=== PATIENT | female | born 1990 | race African-American/Black ===

== ENCOUNTER 2018-12-28 15:23 | Inpatient (IN) | payer MEDICARE ==
[~2018-12-28] VITALS: Ht 162.6 cm; Wt 112.5 kg
[2018-12-28] MEDS ORDERED: HALOPERIDOL 5 MG TABLET PO PRN (20:00)
[2018-12-28] MEDS ORDERED: LORazepam 2 MG TABLET PO PRN (20:00)
[2018-12-28] MEDS ORDERED: ZOLPIDEM TARTRATE 10 MG TABLET PO PRN (20:00)
[2018-12-28 21:02] VITALS: BP 129/77
[2018-12-28] MEDS ORDERED: ALBUTEROL SULFATE HFA 90 MCG/PUFF 8 GM INHALER IH PRN (21:15)
[2018-12-28] MEDS ORDERED: CloNIDine HCL 0.1 MG TABLET PO PRN (21:15)
[2018-12-28] MEDS ORDERED: DOCUSATE SODIUM 100 MG CAPSULE PO PRN (21:15)
[2018-12-28] MEDS ORDERED: NICOTINE 14 MG/24 HOUR PATCH TD PRN (21:15)
[2018-12-28] MEDS ORDERED: MAG HYDROX/AL HYDROX/SIMETH ES 30 ML SUSPENSION UDCUP PO PRN (21:15)
[2018-12-28] MEDS ORDERED: PETROLATUM,WHITE 28 GM JELLY TP PRN (21:15)
[2018-12-28] MEDS ORDERED: GuaiFENesin/D-METHORPHAN [SUGAR-FREE] 200-20MG/10 ML SYRUP UDCUP PO PRN (21:15)
[2018-12-28] MEDS ORDERED: MAGNESIUM HYDROXIDE SUSPENSION 30 ML UDCUP PO PRN (21:15)
[2018-12-28] MEDS ORDERED: LOPERAMIDE HCL 2 MG CAPSULE PO PRN (21:15)
[2018-12-28] MEDS ORDERED: IBUPROFEN 400 MG TABLET PO PRN (21:15)
[2018-12-29 02:33] VITALS: BP 126/78
[2018-12-29 08:35] VITALS: BP 121/68
[2018-12-29 08:49] LABS: BASOPHILS % (AUTO) 0.6 % (0.0-2.0); EOSINOPHILS % (AUTO) 1.8 % (1.0-6.0); HEMATOCRIT 36.3 % (36-46); LYMPHOCYTES # (AUTO) 1.4 K/uL (1.0-4.8); LYMPHOCYTES % (AUTO) 27.3 % (22.0-44.0); MEAN CORPUSCULAR HEMOGLOBIN 27.9 pg (26.0-34.0); MEAN CORPUSCULAR HGB CONC 33.1 G/dL (31.0-37.0); MEAN CORPUSCULAR VOLUME 84 fL (80-100); MONOCYTES # (AUTO) 0.5 K/uL (0.1-1.0); MONOCYTES % (AUTO) 9.9 % (2.0-9.0); NEUTROPHILS # (AUTO) 3.2 K/uL (1.8-7.7); NEUTROPHILS % (AUTO) 60.4 % (40.0-70.0); PLATELET COUNT (AUTO) 255 K/uL (150-450); RED BLOOD CELL COUNT(AUTO) 4.31 MIL/uL (4.00-5.20); RED CELL DISTRIBUTION WIDTH 15.4 % (11.5-14.5)
[2018-12-29 08:55] LABS: HEMOGLOBIN A1C 5.7 % (4.5-6.2)
[2018-12-29 09:22] LABS: ALANINE AMINOTRANSFERASE 19 U/L (12-78); ALBUMIN 2.8 g/dL (3.4-5.0); ALKALINE PHOSPHATASE 39 U/L (46-116); ANION GAP 9 mmol/L (8-16); ASPARTATE AMINOTRANSFERASE 18 U/L (15-37); BILIRUBIN,TOTAL 0.2 mg/dL (0.1-1.0); CARBON DIOXIDE 23 mmol/L (22-29); CHLORIDE 103 mmol/L (98-107); CHOL/HDL RATIO 2.8 (3.9-5.7); CHOLESTEROL 141 mg/dL (131-200); CREATININE 0.49 mg/dL (0.60-1.30); FREE T4 (FREE THYROXINE) 0.91 ng/dL (0.76-1.46); GLOMERULAR FILTR. RATE CALC > 60 mL/min (>60); GLUCOSE,RANDOM 81 mg/dL (70-110); HCG,QUANTITATIVE 35370 mIU/mL (0-6); HDL CHOLESTEROL 51 mg/dL (40-60); LDL CHOL (CALC.) 80 mg/dL (0-130); SODIUM SERUM 135 mmol/L (136-145); THYROID STIMULATING HORMONE 0.31 uIU/mL (0.36-3.74); TOTAL PROTEIN, SERUM 6.2 g/dL (6.4-8.2); TRIGLYCERIDES 52 mg/dL (15-150); UREA NITROGEN, BLOOD 13 mg/dL (7-18)
[2018-12-29] MEDS ORDERED: DiphenhydrAMINE HCL 25 MG CAPSULE PO PRN (10:30)
[2018-12-29 16:05] VITALS: BP 118/67
[2018-12-29] MEDS: ONDANSETRON HCL 4 MG TABLET PO PRN (17:17)
[2018-12-30 06:41] VITALS: BP 120/71
[2018-12-30 08:15] VITALS: BP 137/73
[2018-12-30] MEDS: ONDANSETRON HCL 4 MG TABLET PO PRN (10:37)
[2018-12-30 16:11] VITALS: BP 103/60
[2018-12-30] MEDS: ACETAMINOPHEN 325 MG TABLET PO PRN (23:51)
[2018-12-31 00:02] VITALS: BP 112/72
[2018-12-31] MEDS: ONDANSETRON HCL 4 MG TABLET PO PRN (07:13)
[2018-12-31 08:17] VITALS: BP 110/60
[2018-12-31] MEDS: PRENATAL VIT#96/FERROUS FUM/FA TABLET PO SCH (09:34)
[2018-12-31 16:10] VITALS: BP 99/74
[2019-01-01 00:53] VITALS: BP 116/78
[2019-01-01] MEDS: ACETAMINOPHEN 325 MG TABLET PO PRN (04:51)
[2019-01-01 08:12] VITALS: BP 100/56
[2019-01-01] MEDS: PRENATAL VIT#96/FERROUS FUM/FA TABLET PO SCH (08:22)
[2019-01-01] MEDS ORDERED: OLAN5TAB2 PO (11:38)
[2019-01-01] MEDS ORDERED: PREN-154 PO (11:40)
[2019-01-01] MEDS ORDERED: OLANZapine 5 MG TABLET PO SCH (21:00)
== END 2019-01-01 14:55 | disposition home or self-care (01) | DRG 832 ==
LOC: B3A 19:53
DX: O99.341 Other mental disorders complicating pregnancy, first trimester (principal); E87.1 Hypo-osmolality and hyponatremia; O99.321 Drug use complicating pregnancy, first trimester; F25.0 Schizoaffective disorder, bipolar type; F12.10 Cannabis abuse, uncomplicated; F10.10 Alcohol abuse, uncomplicated; O99.281 Endocrine, nutritional and metabolic diseases complicating pregnancy, first trimester; O26.891 Other specified pregnancy related conditions, first trimester; O99.311 Alcohol use complicating pregnancy, first trimester; E88.09 Other disorders of plasma-protein metabolism, not elsewhere classified; E66.3 Overweight; Z71.51 Drug abuse counseling and surveillance of drug abuser; Z71.41 Alcohol abuse counseling and surveillance of alcoholic; Z91.038 Other insect allergy status; Z3A.13 13 weeks gestation of pregnancy
CPT/HCPCS: 76811; 83036; 84439; 84443; 87081; Q0162

== ENCOUNTER 2019-01-31 13:55 | Inpatient (IN) | payer MEDICARE, OTHER ==
[~2019-01-31] VITALS: Ht 162.6 cm; Wt 118.6 kg
[~2019-01-31 13:55] MED LIST: OLAN5TAB2 PO; PREN-154 PO
[2019-01-31 16:03] LABS: APPEARANCE,URINE CLEAR (CLEAR); BILIRUBIN,URINE NEGATIVE (NEGATIVE); GLUCOSE, URINE (UA) NEGATIVE (NEGATIVE); KETONES,URINE TRACE mg/dL (NEGATIVE); LEUKOCYTE ESTERASE ,URINE NEGATIVE (NEGATIVE); NITRATE,URINE NEGATIVE (NEGATIVE); OCCULT BLOOD,URINE NEGATIVE (NEGATIVE); PH,URINE 6.5 (5.0-8.0); PROTEIN,URINE NEGATIVE (NEGATIVE); UROBILINOGEN,URINE 0.2 mg/dL (<=1.0)
[2019-01-31 16:12] LABS: BACTERIA,URINE Few /HPF (None Seen); RBC,URINE 0-2 /HPF (0-2); SQUAMOUS EPITHELIAL CELL,UR Moderate /LPF (None Seen); WBC,URINE 0-2 /HPF (0-5)
[2019-01-31 16:15] LABS: AMPHET/METH SCREEN,URINE NEGATIVE (NEGATIVE); BARBITURATE SCREEN, URINE NEGATIVE (NEGATIVE); BENZODIAZEPINES SCREEN,URINE NEGATIVE (NEGATIVE); CANNABINOID SCREEN,URINE NEGATIVE (NEGATIVE); COCAINE SCREEN,URINE NEGATIVE (NEGATIVE); METHADONE SCREEN, URINE NEGATIVE (NEGATIVE); OPIATE SCREEN,URINE NEGATIVE (NEGATIVE)
[2019-01-31 16:18] LABS: PHENCYCLIDINE SCREEN,URINE NEGATIVE (NEGATIVE)
[2019-01-31] MEDS ORDERED: DiphenhydrAMINE HCL 25 MG CAPSULE PO PRN (17:00)
[2019-01-31] MEDS ORDERED: IBUPROFEN 400 MG TABLET PO PRN (17:15)
[2019-01-31 19:27] VITALS: BP 117/71
[2019-02-01] MEDS: PRENATAL VIT#96/FERROUS FUM/FA TABLET PO SCH (08:27)
[2019-02-01 09:52] VITALS: BP 124/89
[2019-02-01] MEDS ORDERED: MAG HYDROX/AL HYDROX/SIMETH ES 30 ML SUSPENSION UDCUP PO PRN (10:30)
[2019-02-01] MEDS ORDERED: MAGNESIUM HYDROXIDE SUSPENSION 30 ML UDCUP PO PRN (10:30)
[2019-02-01] MEDS ORDERED: GuaiFENesin/D-METHORPHAN [SUGAR-FREE] 200-20MG/10 ML SYRUP UDCUP PO PRN (10:30)
[2019-02-01] MEDS ORDERED: PETROLATUM,WHITE 28 GM JELLY TP PRN (10:30)
[2019-02-01] MEDS ORDERED: DOCUSATE SODIUM 100 MG CAPSULE PO PRN (10:30)
[2019-02-01] MEDS ORDERED: ONDANSETRON HCL 4 MG TABLET PO PRN (10:30)
[2019-02-01 10:39] LABS: BASOPHILS % (AUTO) 0.4 % (0.0-2.0); EOSINOPHILS % (AUTO) 2.2 % (1.0-6.0); HEMATOCRIT 35.8 % (36-46); LYMPHOCYTES # (AUTO) 1.7 K/uL (1.0-4.8); LYMPHOCYTES % (AUTO) 25.4 % (22.0-44.0); MEAN CORPUSCULAR HEMOGLOBIN 28.6 pg (26.0-34.0); MEAN CORPUSCULAR HGB CONC 33.6 G/dL (31.0-37.0); MEAN CORPUSCULAR VOLUME 85 fL (80-100); MONOCYTES # (AUTO) 0.7 K/uL (0.1-1.0); NEUTROPHILS # (AUTO) 4.1 K/uL (1.8-7.7); PLATELET COUNT (AUTO) 222 K/uL (150-450); RED BLOOD CELL COUNT(AUTO) 4.21 MIL/uL (4.00-5.20); RED CELL DISTRIBUTION WIDTH 15.3 % (11.5-14.5)
[2019-02-01 10:48] LABS: HEMOGLOBIN A1C 5.4 % (4.5-6.2)
[2019-02-01 10:59] LABS: ALANINE AMINOTRANSFERASE 22 U/L (12-78); ALBUMIN 2.9 g/dL (3.4-5.0); ALKALINE PHOSPHATASE 48 U/L (46-116); ANION GAP 6 mmol/L (8-16); ASPARTATE AMINOTRANSFERASE 17 U/L (15-37); BILIRUBIN,TOTAL 0.1 mg/dL (0.1-1.0); CARBON DIOXIDE 27 mmol/L (22-29); CHLORIDE 104 mmol/L (98-107); CHOL/HDL RATIO 2.9 (3.9-5.7); CHOLESTEROL 164 mg/dL (131-200); CREATININE 0.63 mg/dL (0.60-1.30); GLOMERULAR FILTR. RATE CALC > 60 mL/min (>60); GLUCOSE,RANDOM 83 mg/dL (70-110); HDL CHOLESTEROL 56 mg/dL (40-60); LDL CHOL (CALC.) 91 mg/dL (0-130); POTASSIUM 4.2 mmol/L (3.5-5.1); SODIUM SERUM 137 mmol/L (136-145); THYROID STIMULATING HORMONE 1.09 uIU/mL (0.36-3.74); TOTAL PROTEIN, SERUM 6.3 g/dL (6.4-8.2); TRIGLYCERIDES 85 mg/dL (15-150); UREA NITROGEN, BLOOD 8 mg/dL (7-18)
[2019-02-01 20:16] VITALS: BP 128/68
[2019-02-01] MEDS: OLANZapine 5 MG TABLET PO SCH (20:22)
[2019-02-02 08:40] VITALS: BP 109/79
[2019-02-02] MEDS: PRENATAL VIT#96/FERROUS FUM/FA TABLET PO SCH (08:43)
[2019-02-02] MEDS: DiphenhydrAMINE HCL 25 MG CAPSULE PO PRN (12:41)
[2019-02-02] MEDS: OLANZapine 5 MG TABLET PO SCH (21:21)
[2019-02-02 22:39] VITALS: BP 112/82
[2019-02-03] MEDS: ALBUTEROL SULFATE HFA 90 MCG/PUFF 8 GM INHALER IH PRN (06:27)
[2019-02-03] MEDS: PRENATAL VIT#96/FERROUS FUM/FA TABLET PO SCH (08:29)
[2019-02-03 08:46] VITALS: BP 122/74
[2019-02-03 19:04] VITALS: BP 145/68
[2019-02-03 20:17] VITALS: BP 138/74
[2019-02-03] MEDS: OLANZapine 5 MG TABLET PO SCH (20:18)
[2019-02-03] MEDS: ACETAMINOPHEN 325 MG TABLET PO PRN (20:18)
[2019-02-03] MEDS: DiphenhydrAMINE HCL 25 MG CAPSULE PO PRN (20:18)
[2019-02-04 08:30] VITALS: BP 124/86
[2019-02-04] MEDS: PRENATAL VIT#96/FERROUS FUM/FA TABLET PO SCH (08:54)
[2019-02-04] MEDS: ALBUTEROL SULFATE HFA 90 MCG/PUFF 8 GM INHALER IH PRN (14:42)
[2019-02-04] MEDS: DiphenhydrAMINE HCL 25 MG CAPSULE PO PRN ×2 (18:11→22:15)
[2019-02-04] MEDS: OLANZapine 5 MG TABLET PO SCH (20:03)
[2019-02-04 22:15] VITALS: BP 128/76
[2019-02-04] MEDS: ACETAMINOPHEN 325 MG TABLET PO PRN (22:15)
[2019-02-05] MEDS: DiphenhydrAMINE HCL 25 MG CAPSULE PO PRN (07:40)
[2019-02-05] MEDS: PRENATAL VIT#96/FERROUS FUM/FA TABLET PO SCH (09:10)
[2019-02-05] MEDS: ALBUTEROL SULFATE HFA 90 MCG/PUFF 8 GM INHALER IH PRN (09:11)
[2019-02-05 09:45] VITALS: BP 145/89
[2019-02-05] MEDS: OLANZapine 5 MG TABLET PO SCH ×2 (10:35→21:07)
[2019-02-05 17:48] VITALS: BP 148/95
[2019-02-06 01:32] VITALS: BP 125/87
[2019-02-06] MEDS: DiphenhydrAMINE HCL 25 MG CAPSULE PO PRN ×2 (06:30→20:23)
[2019-02-06] MEDS: PRENATAL VIT#96/FERROUS FUM/FA TABLET PO SCH (09:00)
[2019-02-06] MEDS: OLANZapine 5 MG TABLET PO SCH ×4 (09:00→21:32)
[2019-02-07 08:00] VITALS: BP 92/54
[2019-02-07] MEDS: PRENATAL VIT#96/FERROUS FUM/FA TABLET PO SCH (08:05)
[2019-02-07] MEDS: OLANZapine 5 MG TABLET PO SCH ×2 (08:06→20:25)
[2019-02-07] MEDS: DiphenhydrAMINE HCL 25 MG CAPSULE PO PRN (20:25)
[2019-02-08] MEDS: PRENATAL VIT#96/FERROUS FUM/FA TABLET PO SCH (08:16)
[2019-02-08] MEDS: OLANZapine 5 MG TABLET PO SCH ×2 (08:16→20:40)
[2019-02-08 19:49] VITALS: BP 125/69
[2019-02-09] MEDS: PRENATAL VIT#96/FERROUS FUM/FA TABLET PO SCH (08:17)
[2019-02-09] MEDS: OLANZapine 5 MG TABLET PO SCH ×2 (08:18→20:02)
[2019-02-09 17:08] VITALS: BP 123/89
[2019-02-10 08:00] VITALS: BP 116/75
[2019-02-10] MEDS: PRENATAL VIT#96/FERROUS FUM/FA TABLET PO SCH (08:32)
[2019-02-10] MEDS: OLANZapine 5 MG TABLET PO SCH ×2 (08:32→20:12)
[2019-02-11 00:21] VITALS: BP 135/81
[2019-02-11] MEDS: PRENATAL VIT#96/FERROUS FUM/FA TABLET PO SCH (08:41)
[2019-02-11] MEDS: OLANZapine 5 MG TABLET PO SCH ×2 (08:41→20:44)
[2019-02-12 00:12] VITALS: BP 126/57
[2019-02-12] MEDS: OLANZapine 5 MG TABLET PO SCH ×2 (08:22→20:01)
[2019-02-12] MEDS: PRENATAL VIT#96/FERROUS FUM/FA TABLET PO SCH (08:22)
[2019-02-12 09:21] VITALS: BP 110/79
[2019-02-13] MEDS: PRENATAL VIT#96/FERROUS FUM/FA TABLET PO SCH (08:30)
[2019-02-13] MEDS: OLANZapine 5 MG TABLET PO SCH ×2 (08:30→20:08)
[2019-02-13 22:58] VITALS: BP 119/82
[2019-02-14 08:00] VITALS: BP 145/89
[2019-02-14] MEDS: OLANZapine 5 MG TABLET PO SCH ×2 (09:15→22:14)
[2019-02-14] MEDS: PRENATAL VIT#96/FERROUS FUM/FA TABLET PO SCH (09:15)
[2019-02-14 18:40] VITALS: BP 139/73
[2019-02-15 08:01] VITALS: BP 121/91
[2019-02-15] MEDS: OLANZapine 5 MG TABLET PO SCH ×2 (08:03→20:16)
[2019-02-15] MEDS: PRENATAL VIT#96/FERROUS FUM/FA TABLET PO SCH (08:03)
[2019-02-15 17:04] VITALS: BP 112/73
[2019-02-16] MEDS: OLANZapine 5 MG TABLET PO SCH ×2 (07:58→20:01)
[2019-02-16] MEDS: PRENATAL VIT#96/FERROUS FUM/FA TABLET PO SCH (07:58)
[2019-02-16 09:20] VITALS: BP 125/81
[2019-02-16 16:52] VITALS: BP 114/75
[2019-02-17] MEDS: PRENATAL VIT#96/FERROUS FUM/FA TABLET PO SCH (09:25)
[2019-02-17] MEDS: OLANZapine 5 MG TABLET PO SCH ×2 (09:25→20:13)
[2019-02-17 10:37] VITALS: BP 136/85
[2019-02-17 16:37] VITALS: BP 128/78
[2019-02-18] MEDS: PRENATAL VIT#96/FERROUS FUM/FA TABLET PO SCH (07:24)
[2019-02-18] MEDS: OLANZapine 5 MG TABLET PO SCH ×2 (07:24→20:04)
[2019-02-18 09:15] VITALS: BP 126/72
[2019-02-18 16:29] VITALS: BP 124/84
[2019-02-19 08:00] VITALS: BP 116/74
[2019-02-19] MEDS: PRENATAL VIT#96/FERROUS FUM/FA TABLET PO SCH (08:53)
[2019-02-19] MEDS: OLANZapine 5 MG TABLET PO SCH ×2 (08:54→20:29)
[2019-02-20 08:00] VITALS: BP 113/77
[2019-02-20] MEDS: PRENATAL VIT#96/FERROUS FUM/FA TABLET PO SCH (08:14)
[2019-02-20] MEDS: OLANZapine 5 MG TABLET PO SCH ×2 (08:14→20:40)
[2019-02-20 17:31] VITALS: BP 133/78
[2019-02-21 08:30] VITALS: BP 109/66
[2019-02-21] MEDS: PRENATAL VIT#96/FERROUS FUM/FA TABLET PO SCH (08:42)
[2019-02-21] MEDS: OLANZapine 5 MG TABLET PO SCH ×2 (08:42→21:24)
[2019-02-21] MEDS ORDERED: TUBERCULIN, PURIFIED PROTEIN DERIVATIVE 5 TU/0.1 ML SYRINGE ID ONE (09:00)
[2019-02-21 16:45] VITALS: BP 145/71
[2019-02-22 08:00] VITALS: BP 109/73
[2019-02-22] MEDS: OLANZapine 5 MG TABLET PO SCH ×2 (09:12→21:00)
[2019-02-22] MEDS: PRENATAL VIT#96/FERROUS FUM/FA TABLET PO SCH (09:12)
[2019-02-22 16:00] VITALS: BP 142/90
[2019-02-22] MEDS ORDERED: TUBERCULIN, PURIFIED PROTEIN DERIVATIVE 5 TU/0.1 ML SYRINGE ID ONE (16:00)
[2019-02-23 08:00] VITALS: BP 116/78
[2019-02-23] MEDS: OLANZapine 5 MG TABLET PO SCH ×2 (08:03→20:40)
[2019-02-23] MEDS: PRENATAL VIT#96/FERROUS FUM/FA TABLET PO SCH (08:03)
[2019-02-23 23:20] VITALS: BP 124/81
[2019-02-24 08:00] VITALS: BP 111/73
[2019-02-24] MEDS: PRENATAL VIT#96/FERROUS FUM/FA TABLET PO SCH (08:54)
[2019-02-24] MEDS: OLANZapine 5 MG TABLET PO SCH ×2 (08:54→20:20)
[2019-02-24 16:10] VITALS: BP 109/62
[2019-02-25] MEDS: OLANZapine 5 MG TABLET PO SCH ×2 (08:22→20:38)
[2019-02-25] MEDS: PRENATAL VIT#96/FERROUS FUM/FA TABLET PO SCH (08:22)
[2019-02-25 09:17] VITALS: BP 113/60
[2019-02-25 17:07] VITALS: BP 122/70
[2019-02-26] MEDS: PRENATAL VIT#96/FERROUS FUM/FA TABLET PO SCH (08:23)
[2019-02-26] MEDS: OLANZapine 5 MG TABLET PO SCH ×2 (08:23→20:25)
[2019-02-26 09:35] VITALS: BP 116/73
[2019-02-26 16:20] VITALS: BP 118/70
[2019-02-27 08:00] VITALS: BP 119/74
[2019-02-27] MEDS: PRENATAL VIT#96/FERROUS FUM/FA TABLET PO SCH (09:38)
[2019-02-27] MEDS: OLANZapine 5 MG TABLET PO SCH ×2 (09:38→21:29)
[2019-02-27 16:42] VITALS: BP 115/72
[2019-02-28 08:00] VITALS: BP 135/68
[2019-02-28] MEDS: PRENATAL VIT#96/FERROUS FUM/FA TABLET PO SCH (08:59)
[2019-02-28] MEDS: OLANZapine 5 MG TABLET PO SCH ×2 (08:59→20:17)
[2019-02-28 20:46] VITALS: BP 132/75
[2019-03-01 08:00] VITALS: BP 143/72
[2019-03-01] MEDS: PRENATAL VIT#96/FERROUS FUM/FA TABLET PO SCH (09:20)
[2019-03-01] MEDS: OLANZapine 5 MG TABLET PO SCH ×2 (09:20→20:44)
[2019-03-01 16:30] VITALS: BP 121/62
[2019-03-02 08:45] VITALS: BP 105/73
[2019-03-02] MEDS: OLANZapine 5 MG TABLET PO SCH ×2 (09:08→20:08)
[2019-03-02] MEDS: PRENATAL VIT#96/FERROUS FUM/FA TABLET PO SCH (09:08)
[2019-03-03] MEDS: PRENATAL VIT#96/FERROUS FUM/FA TABLET PO SCH (08:41)
[2019-03-03] MEDS: OLANZapine 5 MG TABLET PO SCH ×2 (08:41→20:22)
[2019-03-03 09:49] VITALS: BP 106/66
[2019-03-03 22:04] VITALS: BP 109/72
[2019-03-04] MEDS: OLANZapine 5 MG TABLET PO SCH ×2 (08:05→20:07)
[2019-03-04] MEDS: PRENATAL VIT#96/FERROUS FUM/FA TABLET PO SCH (08:05)
[2019-03-04 08:32] VITALS: BP 105/67
[2019-03-04 20:45] VITALS: BP 133/89
[2019-03-04 20:49] VITALS: BP 124/80
[2019-03-05 08:00] VITALS: BP 113/80
[2019-03-05] MEDS: PRENATAL VIT#96/FERROUS FUM/FA TABLET PO SCH (08:36)
[2019-03-05] MEDS: OLANZapine 5 MG TABLET PO SCH ×2 (08:36→20:31)
[2019-03-06] MEDS: PRENATAL VIT#96/FERROUS FUM/FA TABLET PO SCH (09:04)
[2019-03-06] MEDS: OLANZapine 5 MG TABLET PO SCH ×2 (09:04→20:15)
[2019-03-06 09:15] VITALS: BP 129/73
[2019-03-06] MEDS: MAGNESIUM SULFATE 454 GM BOX TP SCH (16:36)
[2019-03-07 08:15] VITALS: BP 124/84
[2019-03-07] MEDS: PRENATAL VIT#96/FERROUS FUM/FA TABLET PO SCH (08:26)
[2019-03-07] MEDS: OLANZapine 5 MG TABLET PO SCH (08:26)
[2019-03-07 10:29] VITALS: BP 124/84
[2019-03-07] MEDS: MAGNESIUM SULFATE 454 GM BOX TP SCH (11:28)
[2019-03-07 16:00] VITALS: BP 126/79
[2019-03-07] MEDS: CARBAMIDE PEROXIDE 6.5% 15 ML OTIC SOLUTION AU SCH (16:22)
[2019-03-07] MEDS: OLANZapine 5 MG RAPDIS TABLET PO SCH (20:15)
[2019-03-08 02:56] VITALS: BP 121/61
[2019-03-08] MEDS: PRENATAL VIT#96/FERROUS FUM/FA TABLET PO SCH (09:00)
[2019-03-08] MEDS: OLANZapine 5 MG RAPDIS TABLET PO SCH ×2 (09:00→20:20)
[2019-03-08] MEDS: CARBAMIDE PEROXIDE 6.5% 15 ML OTIC SOLUTION AU SCH ×2 (09:01→16:04)
[2019-03-08] MEDS: MAGNESIUM SULFATE 454 GM BOX TP SCH (09:01)
[2019-03-08 16:51] VITALS: BP 126/75
[2019-03-09] MEDS: CARBAMIDE PEROXIDE 6.5% 15 ML OTIC SOLUTION AU SCH ×2 (09:10→16:09)
[2019-03-09] MEDS: OLANZapine 5 MG RAPDIS TABLET PO SCH ×2 (09:10→20:10)
[2019-03-09] MEDS: MAGNESIUM SULFATE 454 GM BOX TP SCH (09:10)
[2019-03-09] MEDS: PRENATAL VIT#96/FERROUS FUM/FA TABLET PO SCH (09:10)
[2019-03-10] MEDS: PRENATAL VIT#96/FERROUS FUM/FA TABLET PO SCH (10:40)
[2019-03-10] MEDS: OLANZapine 5 MG RAPDIS TABLET PO SCH ×2 (10:40→21:00)
[2019-03-10] MEDS: MAGNESIUM SULFATE 454 GM BOX TP SCH (10:40)
[2019-03-10] MEDS: CARBAMIDE PEROXIDE 6.5% 15 ML OTIC SOLUTION AU SCH ×2 (10:40→16:15)
[2019-03-10 20:03] VITALS: BP 144/91
[2019-03-11 08:00] VITALS: BP 110/60
[2019-03-11] MEDS: PRENATAL VIT#96/FERROUS FUM/FA TABLET PO SCH (08:26)
[2019-03-11] MEDS: CARBAMIDE PEROXIDE 6.5% 15 ML OTIC SOLUTION AU SCH ×2 (08:27→16:28)
[2019-03-11] MEDS: MAGNESIUM SULFATE 454 GM BOX TP SCH (08:30)
[2019-03-11] MEDS: OLANZapine 5 MG RAPDIS TABLET PO SCH ×2 (09:45→20:12)
[2019-03-12 08:00] VITALS: BP 117/72
[2019-03-12] MEDS: PRENATAL VIT#96/FERROUS FUM/FA TABLET PO SCH (08:43)
[2019-03-12] MEDS: OLANZapine 5 MG RAPDIS TABLET PO SCH ×2 (08:43→20:02)
[2019-03-12] MEDS: CARBAMIDE PEROXIDE 6.5% 15 ML OTIC SOLUTION AU SCH (08:44)
[2019-03-12] MEDS: MAGNESIUM SULFATE 454 GM BOX TP SCH (08:54)
[2019-03-12 16:42] VITALS: BP 130/79
[2019-03-13] MEDS: OLANZapine 5 MG RAPDIS TABLET PO SCH ×2 (08:37→20:06)
[2019-03-13] MEDS: PRENATAL VIT#96/FERROUS FUM/FA TABLET PO SCH (08:37)
[2019-03-13] MEDS: MAGNESIUM SULFATE 454 GM BOX TP SCH (08:38)
[2019-03-13 16:00] VITALS: BP 133/78
[2019-03-14] MEDS: OLANZapine 5 MG RAPDIS TABLET PO SCH ×2 (08:29→20:06)
[2019-03-14] MEDS: PRENATAL VIT#96/FERROUS FUM/FA TABLET PO SCH (08:29)
[2019-03-14] MEDS: MAGNESIUM SULFATE 454 GM BOX TP SCH (08:35)
[2019-03-15] MEDS: MAGNESIUM SULFATE 454 GM BOX TP SCH (09:00)
[2019-03-15] MEDS: PRENATAL VIT#96/FERROUS FUM/FA TABLET PO SCH (09:24)
[2019-03-15] MEDS: OLANZapine 5 MG RAPDIS TABLET PO SCH ×2 (09:24→20:10)
[2019-03-15 18:30] VITALS: BP 123/93
[2019-03-16] MEDS: MAGNESIUM SULFATE 454 GM BOX TP SCH (09:00)
[2019-03-16] MEDS: PRENATAL VIT#96/FERROUS FUM/FA TABLET PO SCH (10:43)
[2019-03-16] MEDS: OLANZapine 5 MG RAPDIS TABLET PO SCH ×2 (10:43→20:10)
[2019-03-16 16:34] VITALS: BP 105/60
[2019-03-17] MEDS: MAGNESIUM SULFATE 454 GM BOX TP SCH (09:00)
[2019-03-17] MEDS: PRENATAL VIT#96/FERROUS FUM/FA TABLET PO SCH (09:33)
[2019-03-17] MEDS: OLANZapine 5 MG RAPDIS TABLET PO SCH ×2 (09:33→20:53)
[2019-03-17 16:52] VITALS: BP 120/63
[2019-03-18] MEDS: MAGNESIUM SULFATE 454 GM BOX TP SCH (09:00)
[2019-03-18] MEDS: PRENATAL VIT#96/FERROUS FUM/FA TABLET PO SCH (09:50)
[2019-03-18] MEDS: OLANZapine 5 MG RAPDIS TABLET PO SCH ×2 (09:50→20:07)
[2019-03-18 16:15] VITALS: BP 114/67
[2019-03-19 08:45] VITALS: BP 116/68
[2019-03-19] MEDS: MAGNESIUM SULFATE 454 GM BOX TP SCH (09:00)
[2019-03-19] MEDS: PRENATAL VIT#96/FERROUS FUM/FA TABLET PO SCH (09:48)
[2019-03-19] MEDS: OLANZapine 5 MG RAPDIS TABLET PO SCH ×2 (09:48→21:14)
[2019-03-19 17:40] VITALS: BP 124/74
[2019-03-20] MEDS: MAGNESIUM SULFATE 454 GM BOX TP SCH (09:00)
[2019-03-20] MEDS: PRENATAL VIT#96/FERROUS FUM/FA TABLET PO SCH (11:50)
[2019-03-20] MEDS: OLANZapine 5 MG RAPDIS TABLET PO SCH ×2 (11:50→20:22)
[2019-03-20 13:02] VITALS: BP 126/74
[2019-03-20 15:27] LABS: APPEARANCE,URINE CLOUDY (CLEAR); BILIRUBIN,URINE NEGATIVE (NEGATIVE); GLUCOSE, URINE (UA) NEGATIVE (NEGATIVE); KETONES,URINE NEGATIVE (NEGATIVE); LEUKOCYTE ESTERASE ,URINE NEGATIVE (NEGATIVE); NITRATE,URINE NEGATIVE (NEGATIVE); OCCULT BLOOD,URINE NEGATIVE (NEGATIVE); PROTEIN,URINE NEGATIVE (NEGATIVE); UROBILINOGEN,URINE 0.2 mg/dL (<=1.0)
[2019-03-20 16:43] VITALS: BP 123/83
[2019-03-21 08:00] VITALS: BP 96/60
[2019-03-21] MEDS: MAGNESIUM SULFATE 454 GM BOX TP SCH (09:00)
[2019-03-21] MEDS: PRENATAL VIT#96/FERROUS FUM/FA TABLET PO SCH (09:18)
[2019-03-21] MEDS: OLANZapine 5 MG RAPDIS TABLET PO SCH ×2 (09:18→20:08)
[2019-03-21 18:51] VITALS: BP 131/75
[2019-03-22 08:16] VITALS: BP 114/70
[2019-03-22] MEDS: PRENATAL VIT#96/FERROUS FUM/FA TABLET PO SCH (08:24)
[2019-03-22] MEDS: OLANZapine 5 MG RAPDIS TABLET PO SCH ×2 (08:24→20:39)
[2019-03-22] MEDS: MAGNESIUM SULFATE 454 GM BOX TP SCH (08:24)
[2019-03-22 16:34] VITALS: BP 148/92
[2019-03-23] MEDS: MAGNESIUM SULFATE 454 GM BOX TP SCH (09:00)
[2019-03-23] MEDS: OLANZapine 5 MG RAPDIS TABLET PO SCH ×2 (10:19→20:05)
[2019-03-23] MEDS: PRENATAL VIT#96/FERROUS FUM/FA TABLET PO SCH (10:19)
[2019-03-23 16:31] VITALS: BP 132/81
[2019-03-24 08:06] VITALS: BP 103/63
[2019-03-24] MEDS: PRENATAL VIT#96/FERROUS FUM/FA TABLET PO SCH (08:30)
[2019-03-24] MEDS: OLANZapine 5 MG RAPDIS TABLET PO SCH ×2 (08:30→20:24)
[2019-03-24] MEDS: MAGNESIUM SULFATE 454 GM BOX TP SCH (09:00)
[2019-03-24 17:12] VITALS: BP 116/65
[2019-03-25 08:37] VITALS: BP 131/71
[2019-03-25] MEDS: PRENATAL VIT#96/FERROUS FUM/FA TABLET PO SCH (08:52)
[2019-03-25] MEDS: OLANZapine 5 MG RAPDIS TABLET PO SCH ×2 (08:52→20:22)
[2019-03-25] MEDS: MAGNESIUM SULFATE 454 GM BOX TP SCH (08:58)
[2019-03-25 17:57] VITALS: BP 107/60
[2019-03-25 18:05] VITALS: BP 106/65
[2019-03-26 08:17] VITALS: BP 121/68
[2019-03-26] MEDS: PRENATAL VIT#96/FERROUS FUM/FA TABLET PO SCH (08:57)
[2019-03-26] MEDS: OLANZapine 5 MG RAPDIS TABLET PO SCH ×2 (08:57→20:16)
[2019-03-26] MEDS: MAGNESIUM SULFATE 454 GM BOX TP SCH (08:57)
[2019-03-26 17:19] VITALS: BP 110/52
[2019-03-27] MEDS: MAGNESIUM SULFATE 454 GM BOX TP SCH (09:00)
[2019-03-27] MEDS: PRENATAL VIT#96/FERROUS FUM/FA TABLET PO SCH (09:07)
[2019-03-27] MEDS: OLANZapine 5 MG RAPDIS TABLET PO SCH ×2 (09:07→20:22)
[2019-03-27 11:57] VITALS: BP 104/53
[2019-03-27 18:00] VITALS: BP 122/55
[2019-03-27 18:20] LABS: BASOPHILS % (AUTO) 0.3 % (0.0-2.0); EOSINOPHILS % (AUTO) 1.4 % (1.0-6.0); HEMATOCRIT 38.6 % (36-46); HEMOGLOBIN 12.8 g/dL (12.0-16.0); LYMPHOCYTES # (AUTO) 1.7 K/uL (1.0-4.8); LYMPHOCYTES % (AUTO) 22.5 % (22.0-44.0); MEAN CORPUSCULAR HEMOGLOBIN 29.3 pg (26.0-34.0); MEAN CORPUSCULAR HGB CONC 33.2 G/dL (31.0-37.0); MEAN CORPUSCULAR VOLUME 88 fL (80-100); MONOCYTES # (AUTO) 0.4 K/uL (0.1-1.0); NEUTROPHILS # (AUTO) 5.2 K/uL (1.8-7.7); NEUTROPHILS % (AUTO) 69.8 % (40.0-70.0); PLATELET COUNT (AUTO) 235 K/uL (150-450); RED BLOOD CELL COUNT(AUTO) 4.37 MIL/uL (4.00-5.20); RED CELL DISTRIBUTION WIDTH 14.5 % (11.5-14.5)
[2019-03-28 08:00] VITALS: BP 126/60
[2019-03-28] MEDS: OLANZapine 5 MG RAPDIS TABLET PO SCH ×2 (08:26→21:00)
[2019-03-28] MEDS: PRENATAL VIT PO SCH (08:26)
[2019-03-28] MEDS: FERROUS FUM PO SCH (08:26)
[2019-03-28] MEDS: [UNRECOGNIZED DRUG - OTHER] PO SCH (08:26)
[2019-03-28] MEDS: MAGNESIUM SULFATE 454 GM BOX TP SCH (08:29)
[2019-03-28 16:00] VITALS: BP 112/73
[2019-03-29 06:49] LABS: GLUCOMETER DEV NAME(LOC) 3E.C; GLUCOSE,POINT OF CARE 82 MG/DL (70-110)
[2019-03-29 08:00] VITALS: BP 105/60
[2019-03-29] MEDS: MAGNESIUM SULFATE 454 GM BOX TP SCH (09:00)
[2019-03-29] MEDS: OLANZapine 5 MG RAPDIS TABLET PO SCH ×2 (09:03→20:10)
[2019-03-29] MEDS: PRENATAL VIT PO SCH (09:03)
[2019-03-29] MEDS: FERROUS FUM PO SCH (09:03)
[2019-03-29] MEDS: [UNRECOGNIZED DRUG - OTHER] PO SCH (09:03)
[2019-03-29 09:15] LABS: GLUCOMETER DEV NAME(LOC) 3E.C; GLUCOSE,POINT OF CARE 102 MG/DL (70-110)
[2019-03-29 14:29] LABS: GLUCOMETER DEV NAME(LOC) 3E.C; GLUCOSE,POINT OF CARE 135 MG/DL (70-110)
[2019-03-29 16:50] VITALS: BP 115/59
[2019-03-29 18:45] LABS: GLUCOMETER DEV NAME(LOC) 3E.C; GLUCOSE,POINT OF CARE 143 MG/DL (70-110)
[2019-03-29 20:19] LABS: GLUCOMETER DEV NAME(LOC) 3E.C; GLUCOSE,POINT OF CARE 136 MG/DL (70-110)
[2019-03-30 07:04] LABS: GLUCOMETER DEV NAME(LOC) 3E.C; GLUCOSE,POINT OF CARE 86 MG/DL (70-110)
[2019-03-30 08:45] VITALS: BP 100/53
[2019-03-30] MEDS: MAGNESIUM SULFATE 454 GM BOX TP SCH (09:00)
[2019-03-30 09:30] LABS: GLUCOMETER DEV NAME(LOC) 3E.C; GLUCOSE,POINT OF CARE 109 MG/DL (70-110)
[2019-03-30] MEDS: PRENATAL VIT PO SCH (09:54)
[2019-03-30] MEDS: FERROUS FUM PO SCH (09:54)
[2019-03-30] MEDS: OLANZapine 5 MG RAPDIS TABLET PO SCH ×2 (09:54→20:48)
[2019-03-30] MEDS: [UNRECOGNIZED DRUG - OTHER] PO SCH (09:54)
[2019-03-30 13:24] LABS: GLUCOMETER DEV NAME(LOC) 3E.C; GLUCOSE,POINT OF CARE 120 MG/DL (70-110)
[2019-03-30 16:33] VITALS: BP 111/63
[2019-03-30 19:29] LABS: GLUCOMETER DEV NAME(LOC) 3E.C; GLUCOSE,POINT OF CARE 155 MG/DL (70-110)
[2019-03-31 06:49] LABS: GLUCOMETER DEV NAME(LOC) 3E.C; GLUCOSE,POINT OF CARE 142 MG/DL (70-110)
[2019-03-31] MEDS: MAGNESIUM SULFATE 454 GM BOX TP SCH (09:00)
[2019-03-31] MEDS: PRENATAL VIT PO SCH (10:19)
[2019-03-31] MEDS: OLANZapine 5 MG RAPDIS TABLET PO SCH ×2 (10:19→20:09)
[2019-03-31] MEDS: [UNRECOGNIZED DRUG - OTHER] PO SCH (10:19)
[2019-03-31] MEDS: FERROUS FUM PO SCH (10:19)
[2019-03-31 11:39] LABS: GLUCOMETER DEV NAME(LOC) 3E.C; GLUCOSE,POINT OF CARE 81 MG/DL (70-110)
[2019-03-31 14:24] LABS: GLUCOMETER DEV NAME(LOC) 3E.C; GLUCOSE,POINT OF CARE 78 MG/DL (70-110)
[2019-03-31 16:39] VITALS: BP 106/65
[2019-03-31 20:34] LABS: GLUCOMETER DEV NAME(LOC) 3E.C; GLUCOSE,POINT OF CARE 122 MG/DL (70-110)
[2019-04-01 06:49] LABS: GLUCOMETER DEV NAME(LOC) 3E.C; GLUCOSE,POINT OF CARE 101 MG/DL (70-110)
[2019-04-01 08:00] VITALS: BP 108/57
[2019-04-01] MEDS: OLANZapine 5 MG RAPDIS TABLET PO SCH ×2 (09:00→20:06)
[2019-04-01] MEDS: MAGNESIUM SULFATE 454 GM BOX TP SCH (09:00)
[2019-04-01] MEDS: FERROUS FUM PO SCH (09:04)
[2019-04-01] MEDS: PRENATAL VIT PO SCH (09:04)
[2019-04-01] MEDS: [UNRECOGNIZED DRUG - OTHER] PO SCH (09:04)
[2019-04-01 09:19] LABS: GLUCOMETER DEV NAME(LOC) 3E.C; GLUCOSE,POINT OF CARE 98 MG/DL (70-110)
[2019-04-01 15:04] LABS: GLUCOMETER DEV NAME(LOC) 3E.C; GLUCOSE,POINT OF CARE 76 MG/DL (70-110)
[2019-04-01 16:53] VITALS: BP 125/86
[2019-04-01 19:14] LABS: GLUCOMETER DEV NAME(LOC) 3E.C; GLUCOSE,POINT OF CARE 177 MG/DL (70-110)
[2019-04-01] MEDS ORDERED: HYPROMELLOSE 0.5% 15 ML OPHTHALMIC SOLUTION OU PRN (20:00)
[2019-04-02 06:39] LABS: GLUCOMETER DEV NAME(LOC) 3E.C; GLUCOSE,POINT OF CARE 86 MG/DL (70-110)
[2019-04-02 08:12] VITALS: BP 106/60
[2019-04-02] MEDS: FERROUS FUM PO SCH (08:44)
[2019-04-02] MEDS: OLANZapine 5 MG RAPDIS TABLET PO SCH ×2 (08:44→20:02)
[2019-04-02] MEDS: PRENATAL VIT PO SCH (08:44)
[2019-04-02] MEDS: [UNRECOGNIZED DRUG - OTHER] PO SCH (08:44)
[2019-04-02] MEDS: MAGNESIUM SULFATE 454 GM BOX TP SCH (09:00)
[2019-04-02 10:39] LABS: GLUCOMETER DEV NAME(LOC) 3E.C; GLUCOSE,POINT OF CARE 101 MG/DL (70-110)
[2019-04-02 13:19] LABS: GLUCOMETER DEV NAME(LOC) 3E.C; GLUCOSE,POINT OF CARE 99 MG/DL (70-110)
[2019-04-02 16:30] VITALS: BP 118/79
[2019-04-02 18:19] LABS: GLUCOMETER DEV NAME(LOC) 3E.C; GLUCOSE,POINT OF CARE 129 MG/DL (70-110)
[2019-04-02 22:04] LABS: GLUCOMETER DEV NAME(LOC) 3E.C; GLUCOSE,POINT OF CARE 119 MG/DL (70-110)
[2019-04-03 06:40] LABS: GLUCOMETER DEV NAME(LOC) 3E.C; GLUCOSE,POINT OF CARE 91 MG/DL (70-110)
[2019-04-03] MEDS: MAGNESIUM SULFATE 454 GM BOX TP SCH (09:00)
[2019-04-03] MEDS: FERROUS FUM PO SCH (09:10)
[2019-04-03] MEDS: [UNRECOGNIZED DRUG - OTHER] PO SCH (09:10)
[2019-04-03] MEDS: PRENATAL VIT PO SCH (09:10)
[2019-04-03] MEDS: OLANZapine 5 MG RAPDIS TABLET PO SCH ×2 (09:10→20:01)
[2019-04-03 10:19] LABS: GLUCOMETER DEV NAME(LOC) 3E.C; GLUCOSE,POINT OF CARE 114 MG/DL (70-110)
[2019-04-03 14:05] LABS: GLUCOMETER DEV NAME(LOC) 3E.C; GLUCOSE,POINT OF CARE 121 MG/DL (70-110)
[2019-04-03 18:29] LABS: GLUCOMETER DEV NAME(LOC) 3E.C; GLUCOSE,POINT OF CARE 115 MG/DL (70-110)
[2019-04-03 22:09] LABS: GLUCOMETER DEV NAME(LOC) 3E.C; GLUCOSE,POINT OF CARE 125 MG/DL (70-110)
[2019-04-04 06:25] LABS: GLUCOMETER DEV NAME(LOC) 3E.C; GLUCOSE,POINT OF CARE 87 MG/DL (70-110)
[2019-04-04] MEDS: MAGNESIUM SULFATE 454 GM BOX TP SCH (09:00)
[2019-04-04] MEDS: [UNRECOGNIZED DRUG - OTHER] PO SCH (09:36)
[2019-04-04] MEDS: PRENATAL VIT PO SCH (09:36)
[2019-04-04] MEDS: OLANZapine 5 MG RAPDIS TABLET PO SCH ×2 (09:36→20:39)
[2019-04-04] MEDS: FERROUS FUM PO SCH (09:36)
[2019-04-04 10:26] VITALS: BP 105/66
[2019-04-04 10:30] LABS: GLUCOMETER DEV NAME(LOC) 3E.C; GLUCOSE,POINT OF CARE 134 MG/DL (70-110)
[2019-04-04 14:20] LABS: GLUCOMETER DEV NAME(LOC) 3E.C; GLUCOSE,POINT OF CARE 117 MG/DL (70-110)
[2019-04-04 16:30] VITALS: BP 124/72
[2019-04-04 19:34] LABS: GLUCOMETER DEV NAME(LOC) 3E.C; GLUCOSE,POINT OF CARE 101 MG/DL (70-110)
[2019-04-04 21:14] LABS: GLUCOMETER DEV NAME(LOC) 3E.C; GLUCOSE,POINT OF CARE 102 MG/DL (70-110)
[2019-04-05 06:44] LABS: GLUCOMETER DEV NAME(LOC) 3E.C; GLUCOSE,POINT OF CARE 88 MG/DL (70-110)
[2019-04-05] MEDS: [UNRECOGNIZED DRUG - OTHER] PO SCH (08:52)
[2019-04-05] MEDS: MAGNESIUM SULFATE 454 GM BOX TP SCH (08:52)
[2019-04-05] MEDS: OLANZapine 5 MG RAPDIS TABLET PO SCH ×2 (08:52→21:37)
[2019-04-05] MEDS: PRENATAL VIT PO SCH (08:52)
[2019-04-05] MEDS: FERROUS FUM PO SCH (08:52)
[2019-04-05 10:13] VITALS: BP 112/60
[2019-04-05 10:19] LABS: GLUCOMETER DEV NAME(LOC) 3E.C; GLUCOSE,POINT OF CARE 99 MG/DL (70-110)
[2019-04-05 17:08] VITALS: BP 94/69
[2019-04-05 19:14] LABS: GLUCOMETER DEV NAME(LOC) 3E.C; GLUCOSE,POINT OF CARE 119 MG/DL (70-110)
[2019-04-05 21:44] LABS: GLUCOMETER DEV NAME(LOC) 3E.C; GLUCOSE,POINT OF CARE 160 MG/DL (70-110)
[2019-04-06 06:49] LABS: GLUCOMETER DEV NAME(LOC) 3E.C; GLUCOSE,POINT OF CARE 82 MG/DL (70-110)
[2019-04-06 08:00] VITALS: BP 108/59
[2019-04-06] MEDS: MAGNESIUM SULFATE 454 GM BOX TP SCH (09:00)
[2019-04-06] MEDS: OLANZapine 5 MG RAPDIS TABLET PO SCH ×2 (09:12→20:05)
[2019-04-06] MEDS: PRENATAL VIT PO SCH (09:12)
[2019-04-06] MEDS: FERROUS FUM PO SCH (09:12)
[2019-04-06] MEDS: [UNRECOGNIZED DRUG - OTHER] PO SCH (09:12)
[2019-04-06 11:50] LABS: GLUCOMETER DEV NAME(LOC) 3E.C; GLUCOSE,POINT OF CARE 84 MG/DL (70-110)
[2019-04-06 14:54] LABS: GLUCOMETER DEV NAME(LOC) 3E.C; GLUCOSE,POINT OF CARE 115 MG/DL (70-110)
[2019-04-06 17:18] VITALS: BP 115/84
[2019-04-06 18:49] LABS: GLUCOMETER DEV NAME(LOC) 3E.C; GLUCOSE,POINT OF CARE 132 MG/DL (70-110)
[2019-04-06 21:25] LABS: GLUCOMETER DEV NAME(LOC) 3E.C; GLUCOSE,POINT OF CARE 128 MG/DL (70-110)
[2019-04-07 06:24] LABS: GLUCOMETER DEV NAME(LOC) 3E.C; GLUCOSE,POINT OF CARE 83 MG/DL (70-110)
[2019-04-07] MEDS: PRENATAL VIT PO SCH (08:48)
[2019-04-07] MEDS: MAGNESIUM SULFATE 454 GM BOX TP SCH (08:48)
[2019-04-07] MEDS: OLANZapine 5 MG RAPDIS TABLET PO SCH ×2 (08:48→20:32)
[2019-04-07] MEDS: [UNRECOGNIZED DRUG - OTHER] PO SCH (08:48)
[2019-04-07] MEDS: FERROUS FUM PO SCH (08:48)
[2019-04-07 09:34] LABS: GLUCOMETER DEV NAME(LOC) 3E.C; GLUCOSE,POINT OF CARE 98 MG/DL (70-110)
[2019-04-07 13:49] LABS: GLUCOMETER DEV NAME(LOC) 3E.C; GLUCOSE,POINT OF CARE 88 MG/DL (70-110)
[2019-04-07 18:44] VITALS: BP 111/71
[2019-04-07 18:59] LABS: GLUCOMETER DEV NAME(LOC) 3E.C; GLUCOSE,POINT OF CARE 168 MG/DL (70-110)
[2019-04-08 06:44] LABS: GLUCOMETER DEV NAME(LOC) 3E.C; GLUCOSE,POINT OF CARE 85 MG/DL (70-110)
[2019-04-08 08:00] VITALS: BP 134/76
[2019-04-08] MEDS: OLANZapine 5 MG RAPDIS TABLET PO SCH ×2 (08:49→20:13)
[2019-04-08] MEDS: FERROUS FUM PO SCH (08:49)
[2019-04-08] MEDS: [UNRECOGNIZED DRUG - OTHER] PO SCH (08:49)
[2019-04-08] MEDS: PRENATAL VIT PO SCH (08:49)
[2019-04-08] MEDS: MAGNESIUM SULFATE 454 GM BOX TP SCH (09:00)
[2019-04-08 09:59] LABS: GLUCOMETER DEV NAME(LOC) 3E.C; GLUCOSE,POINT OF CARE 154 MG/DL (70-110)
[2019-04-08 12:49] LABS: GLUCOMETER DEV NAME(LOC) 3E.C; GLUCOSE,POINT OF CARE 158 MG/DL (70-110)
[2019-04-08 16:46] VITALS: BP 117/73
[2019-04-08 18:30] LABS: GLUCOMETER DEV NAME(LOC) 3E.C; GLUCOSE,POINT OF CARE 168 MG/DL (70-110)
[2019-04-08 21:20] LABS: GLUCOMETER DEV NAME(LOC) 3E.C; GLUCOSE,POINT OF CARE 136 MG/DL (70-110)
[2019-04-09 06:20] LABS: GLUCOMETER DEV NAME(LOC) 3E.C; GLUCOSE,POINT OF CARE 88 MG/DL (70-110)
[2019-04-09] MEDS: MAGNESIUM SULFATE 454 GM BOX TP SCH (09:00)
[2019-04-09] MEDS: PRENATAL VIT PO SCH (09:02)
[2019-04-09] MEDS: OLANZapine 5 MG RAPDIS TABLET PO SCH ×2 (09:02→20:05)
[2019-04-09] MEDS: [UNRECOGNIZED DRUG - OTHER] PO SCH (09:02)
[2019-04-09] MEDS: FERROUS FUM PO SCH (09:02)
[2019-04-09 09:14] LABS: GLUCOMETER DEV NAME(LOC) 3E.C; GLUCOSE,POINT OF CARE 101 MG/DL (70-110)
[2019-04-09 11:49] VITALS: BP 155/79
[2019-04-09 13:59] LABS: GLUCOMETER DEV NAME(LOC) 3E.C; GLUCOSE,POINT OF CARE 98 MG/DL (70-110)
[2019-04-09 16:40] VITALS: BP 117/73
[2019-04-09 19:35] LABS: GLUCOMETER DEV NAME(LOC) 3E.C; GLUCOSE,POINT OF CARE 103 MG/DL (70-110)
[2019-04-10 06:25] LABS: GLUCOMETER DEV NAME(LOC) 3E.C; GLUCOSE,POINT OF CARE 87 MG/DL (70-110)
[2019-04-10] MEDS: FERROUS FUM PO SCH (08:49)
[2019-04-10] MEDS: PRENATAL VIT PO SCH (08:49)
[2019-04-10] MEDS: OLANZapine 5 MG RAPDIS TABLET PO SCH ×2 (08:49→20:05)
[2019-04-10] MEDS: [UNRECOGNIZED DRUG - OTHER] PO SCH (08:49)
[2019-04-10] MEDS: MAGNESIUM SULFATE 454 GM BOX TP SCH (08:53)
[2019-04-10 08:54] VITALS: BP 125/65
[2019-04-10 09:55] LABS: GLUCOMETER DEV NAME(LOC) 3E.C; GLUCOSE,POINT OF CARE 125 MG/DL (70-110)
[2019-04-10 11:54] LABS: GLUCOMETER DEV NAME(LOC) 3E.C; GLUCOSE,POINT OF CARE 75 MG/DL (70-110)
[2019-04-10 19:14] LABS: GLUCOMETER DEV NAME(LOC) 3E.C; GLUCOSE,POINT OF CARE 115 MG/DL (70-110)
[2019-04-10 19:22] VITALS: BP 123/74
[2019-04-11 05:59] LABS: GLUCOMETER DEV NAME(LOC) 3E.C; GLUCOSE,POINT OF CARE 91 MG/DL (70-110)
[2019-04-11 08:00] VITALS: BP 102/62
[2019-04-11] MEDS: PRENATAL VIT PO SCH (08:43)
[2019-04-11] MEDS: [UNRECOGNIZED DRUG - OTHER] PO SCH (08:43)
[2019-04-11] MEDS: FERROUS FUM PO SCH (08:43)
[2019-04-11] MEDS: MAGNESIUM SULFATE 454 GM BOX TP SCH (08:44)
[2019-04-11] MEDS: OLANZapine 5 MG RAPDIS TABLET PO SCH ×2 (08:44→20:44)
[2019-04-11 08:54] LABS: GLUCOMETER DEV NAME(LOC) 3E.C; GLUCOSE,POINT OF CARE 127 MG/DL (70-110)
[2019-04-11 13:25] LABS: GLUCOMETER DEV NAME(LOC) 3E.C; GLUCOSE,POINT OF CARE 132 MG/DL (70-110)
[2019-04-11 16:00] VITALS: BP 135/87
[2019-04-11 18:30] LABS: GLUCOMETER DEV NAME(LOC) 3E.C; GLUCOSE,POINT OF CARE 184 MG/DL (70-110)
[2019-04-11 21:49] LABS: GLUCOMETER DEV NAME(LOC) 3E.C; GLUCOSE,POINT OF CARE 155 MG/DL (70-110)
[2019-04-12 06:14] LABS: GLUCOMETER DEV NAME(LOC) 3E.C; GLUCOSE,POINT OF CARE 105 MG/DL (70-110)
[2019-04-12 08:00] VITALS: BP 112/72
[2019-04-12] MEDS: OLANZapine 5 MG RAPDIS TABLET PO SCH ×2 (08:57→21:09)
[2019-04-12] MEDS: PRENATAL VIT PO SCH (08:57)
[2019-04-12] MEDS: FERROUS FUM PO SCH (08:57)
[2019-04-12] MEDS: [UNRECOGNIZED DRUG - OTHER] PO SCH (08:57)
[2019-04-12] MEDS: MAGNESIUM SULFATE 454 GM BOX TP SCH (09:00)
[2019-04-12 10:14] LABS: GLUCOMETER DEV NAME(LOC) 3E.C; GLUCOSE,POINT OF CARE 90 MG/DL (70-110)
[2019-04-12 14:10] LABS: GLUCOMETER DEV NAME(LOC) 3E.C; GLUCOSE,POINT OF CARE 136 MG/DL (70-110)
[2019-04-12 16:44] VITALS: BP 129/79
[2019-04-12 19:44] LABS: GLUCOMETER DEV NAME(LOC) 3E.C; GLUCOSE,POINT OF CARE 112 MG/DL (70-110)
[2019-04-12 21:09] LABS: GLUCOMETER DEV NAME(LOC) 3E.C; GLUCOSE,POINT OF CARE 119 MG/DL (70-110)
[2019-04-13 06:51] LABS: GLUCOMETER DEV NAME(LOC) 3E.C; GLUCOSE,POINT OF CARE 87 MG/DL (70-110)
[2019-04-13 08:00] VITALS: BP 109/67
[2019-04-13] MEDS: MAGNESIUM SULFATE 454 GM BOX TP SCH (09:00)
[2019-04-13] MEDS: FERROUS FUM PO SCH (10:56)
[2019-04-13] MEDS: PRENATAL VIT PO SCH (10:56)
[2019-04-13] MEDS: OLANZapine 5 MG RAPDIS TABLET PO SCH ×2 (10:56→20:06)
[2019-04-13] MEDS: [UNRECOGNIZED DRUG - OTHER] PO SCH (10:56)
[2019-04-13 13:00] LABS: GLUCOMETER DEV NAME(LOC) 3E.C; GLUCOSE,POINT OF CARE 127 MG/DL (70-110)
[2019-04-13 16:30] VITALS: BP 133/67
[2019-04-13 19:54] LABS: GLUCOMETER DEV NAME(LOC) 3E.C; GLUCOSE,POINT OF CARE 163 MG/DL (70-110)
[2019-04-14 08:27] VITALS: BP 112/60
[2019-04-14] MEDS: PRENATAL VIT PO SCH (08:56)
[2019-04-14] MEDS: [UNRECOGNIZED DRUG - OTHER] PO SCH (08:56)
[2019-04-14] MEDS: FERROUS FUM PO SCH (08:56)
[2019-04-14] MEDS: OLANZapine 5 MG RAPDIS TABLET PO SCH ×2 (08:56→20:27)
[2019-04-14] MEDS: MAGNESIUM SULFATE 454 GM BOX TP SCH (08:57)
[2019-04-14 13:54] LABS: GLUCOMETER DEV NAME(LOC) 3E.C; GLUCOSE,POINT OF CARE 85 MG/DL (70-110)
[2019-04-14 13:54] LABS: GLUCOMETER DEV NAME(LOC) 3E.C; GLUCOSE,POINT OF CARE 83 MG/DL (70-110)
[2019-04-14 16:57] VITALS: BP 122/82
[2019-04-14 19:49] LABS: GLUCOMETER DEV NAME(LOC) 3E.C; GLUCOSE,POINT OF CARE 161 MG/DL (70-110)
[2019-04-14 21:39] LABS: GLUCOMETER DEV NAME(LOC) 3E.C; GLUCOSE,POINT OF CARE 157 MG/DL (70-110)
[2019-04-15 06:20] LABS: GLUCOMETER DEV NAME(LOC) 3E.C; GLUCOSE,POINT OF CARE 101 MG/DL (70-110)
[2019-04-15] MEDS: OLANZapine 5 MG RAPDIS TABLET PO SCH ×2 (08:50→20:36)
[2019-04-15] MEDS: FERROUS FUM PO SCH (08:50)
[2019-04-15] MEDS: PRENATAL VIT PO SCH (08:50)
[2019-04-15] MEDS: [UNRECOGNIZED DRUG - OTHER] PO SCH (08:50)
[2019-04-15] MEDS: MAGNESIUM SULFATE 454 GM BOX TP SCH (08:51)
[2019-04-15 10:24] LABS: GLUCOMETER DEV NAME(LOC) 3E.C; GLUCOSE,POINT OF CARE 111 MG/DL (70-110)
[2019-04-15 14:47] VITALS: BP 118/70
[2019-04-15 15:39] LABS: GLUCOMETER DEV NAME(LOC) 3E.C; GLUCOSE,POINT OF CARE 77 MG/DL (70-110)
[2019-04-15 17:01] VITALS: BP 123/85
[2019-04-15 20:19] LABS: GLUCOMETER DEV NAME(LOC) 3E.C; GLUCOSE,POINT OF CARE 162 MG/DL (70-110)
[2019-04-16 02:58] VITALS: BP 101/70
[2019-04-16 06:29] LABS: GLUCOMETER DEV NAME(LOC) 3E.C; GLUCOSE,POINT OF CARE 103 MG/DL (70-110)
[2019-04-16] MEDS: [UNRECOGNIZED DRUG - OTHER] PO SCH (08:42)
[2019-04-16] MEDS: FERROUS FUM PO SCH (08:42)
[2019-04-16] MEDS: OLANZapine 5 MG RAPDIS TABLET PO SCH ×2 (08:42→20:15)
[2019-04-16] MEDS: PRENATAL VIT PO SCH (08:42)
[2019-04-16] MEDS: MAGNESIUM SULFATE 454 GM BOX TP SCH (08:45)
[2019-04-16 09:18] VITALS: BP 121/73
[2019-04-16 10:24] LABS: GLUCOMETER DEV NAME(LOC) 3E.C; GLUCOSE,POINT OF CARE 93 MG/DL (70-110)
[2019-04-16 13:40] LABS: GLUCOMETER DEV NAME(LOC) 3E.C; GLUCOSE,POINT OF CARE 99 MG/DL (70-110)
[2019-04-16 19:00] VITALS: BP 126/81
[2019-04-16 19:19] LABS: GLUCOMETER DEV NAME(LOC) 3E.C; GLUCOSE,POINT OF CARE 176 MG/DL (70-110)
[2019-04-16 22:53] VITALS: BP 118/74
[2019-04-17 05:35] LABS: GLUCOMETER DEV NAME(LOC) 3E.C; GLUCOSE,POINT OF CARE 98 MG/DL (70-110)
[2019-04-17] MEDS: [UNRECOGNIZED DRUG - OTHER] PO SCH (08:47)
[2019-04-17] MEDS: FERROUS FUM PO SCH (08:47)
[2019-04-17] MEDS: PRENATAL VIT PO SCH (08:47)
[2019-04-17] MEDS: OLANZapine 5 MG RAPDIS TABLET PO SCH ×2 (08:47→20:57)
[2019-04-17] MEDS: MAGNESIUM SULFATE 454 GM BOX TP SCH (08:50)
[2019-04-17 09:55] LABS: GLUCOMETER DEV NAME(LOC) 3E.C; GLUCOSE,POINT OF CARE 130 MG/DL (70-110)
[2019-04-17 09:59] VITALS: BP 120/82
[2019-04-17 12:39] LABS: GLUCOMETER DEV NAME(LOC) 3E.C; GLUCOSE,POINT OF CARE 154 MG/DL (70-110)
[2019-04-17 18:15] VITALS: BP 124/86
[2019-04-17 18:54] LABS: GLUCOMETER DEV NAME(LOC) 3E.C; GLUCOSE,POINT OF CARE 136 MG/DL (70-110)
[2019-04-17 22:10] LABS: GLUCOMETER DEV NAME(LOC) 3E.C; GLUCOSE,POINT OF CARE 103 MG/DL (70-110)
[2019-04-18 06:40] LABS: GLUCOMETER DEV NAME(LOC) 3E.C; GLUCOSE,POINT OF CARE 97 MG/DL (70-110)
[2019-04-18 08:05] VITALS: BP 122/78
[2019-04-18] MEDS: PRENATAL VIT PO SCH (08:16)
[2019-04-18] MEDS: [UNRECOGNIZED DRUG - OTHER] PO SCH (08:16)
[2019-04-18] MEDS: OLANZapine 5 MG RAPDIS TABLET PO SCH ×2 (08:16→20:32)
[2019-04-18] MEDS: FERROUS FUM PO SCH (08:16)
[2019-04-18] MEDS: MAGNESIUM SULFATE 454 GM BOX TP SCH (08:21)
[2019-04-18 10:04] LABS: GLUCOMETER DEV NAME(LOC) 3E.C; GLUCOSE,POINT OF CARE 106 MG/DL (70-110)
[2019-04-18 12:49] LABS: GLUCOMETER DEV NAME(LOC) 3E.C; GLUCOSE,POINT OF CARE 112 MG/DL (70-110)
[2019-04-18 18:22] LABS: GLUCOMETER DEV NAME(LOC) 3E.C; GLUCOSE,POINT OF CARE 129 MG/DL (70-110)
[2019-04-18 18:47] VITALS: BP 112/74
[2019-04-18 20:57] LABS: GLUCOMETER DEV NAME(LOC) 3E.C; GLUCOSE,POINT OF CARE 116 MG/DL (70-110)
[2019-04-19 06:45] LABS: GLUCOMETER DEV NAME(LOC) 3E.C; GLUCOSE,POINT OF CARE 84 MG/DL (70-110)
[2019-04-19 08:08] VITALS: BP 118/76
[2019-04-19] MEDS: OLANZapine 5 MG RAPDIS TABLET PO SCH ×2 (08:11→20:18)
[2019-04-19] MEDS: FERROUS FUM PO SCH (08:11)
[2019-04-19] MEDS: PRENATAL VIT PO SCH (08:11)
[2019-04-19] MEDS: [UNRECOGNIZED DRUG - OTHER] PO SCH (08:11)
[2019-04-19 08:30] LABS: GLUCOMETER DEV NAME(LOC) 3E.C; GLUCOSE,POINT OF CARE 119 MG/DL (70-110)
[2019-04-19 12:15] LABS: GLUCOMETER DEV NAME(LOC) 3E.C; GLUCOSE,POINT OF CARE 182 MG/DL (70-110)
[2019-04-19 16:00] VITALS: BP 114/59
[2019-04-19 20:25] LABS: GLUCOMETER DEV NAME(LOC) 3E.C; GLUCOSE,POINT OF CARE 160 MG/DL (70-110)
[2019-04-20 06:55] LABS: GLUCOMETER DEV NAME(LOC) 3E.C; GLUCOSE,POINT OF CARE 87 MG/DL (70-110)
[2019-04-20 08:00] VITALS: BP 112/58
[2019-04-20] MEDS: FERROUS FUM PO SCH (08:35)
[2019-04-20] MEDS: PRENATAL VIT PO SCH (08:35)
[2019-04-20] MEDS: OLANZapine 5 MG RAPDIS TABLET PO SCH ×2 (08:35→20:13)
[2019-04-20] MEDS: [UNRECOGNIZED DRUG - OTHER] PO SCH (08:35)
[2019-04-20 08:44] LABS: GLUCOMETER DEV NAME(LOC) 3E.C; GLUCOSE,POINT OF CARE 138 MG/DL (70-110)
[2019-04-20 13:54] LABS: GLUCOMETER DEV NAME(LOC) 3E.C; GLUCOSE,POINT OF CARE 130 MG/DL (70-110)
[2019-04-20 19:25] LABS: GLUCOMETER DEV NAME(LOC) 3E.C; GLUCOSE,POINT OF CARE 142 MG/DL (70-110)
[2019-04-20 21:23] VITALS: BP 118/70
[2019-04-20 21:40] LABS: GLUCOMETER DEV NAME(LOC) 3E.C; GLUCOSE,POINT OF CARE 136 MG/DL (70-110)
[2019-04-21 06:16] LABS: GLUCOMETER DEV NAME(LOC) 3E.C; GLUCOSE,POINT OF CARE 94 MG/DL (70-110)
[2019-04-21 08:10] VITALS: BP 118/72
[2019-04-21] MEDS: PRENATAL VIT PO SCH (08:23)
[2019-04-21] MEDS: OLANZapine 5 MG RAPDIS TABLET PO SCH ×2 (08:23→20:22)
[2019-04-21] MEDS: FERROUS FUM PO SCH (08:23)
[2019-04-21] MEDS: [UNRECOGNIZED DRUG - OTHER] PO SCH (08:23)
[2019-04-21 10:00] LABS: GLUCOMETER DEV NAME(LOC) 3E.C; GLUCOSE,POINT OF CARE 85 MG/DL (70-110)
[2019-04-21 13:15] LABS: GLUCOMETER DEV NAME(LOC) 3E.C; GLUCOSE,POINT OF CARE 111 MG/DL (70-110)
[2019-04-21 17:00] VITALS: BP 116/75
[2019-04-21 18:51] LABS: GLUCOMETER DEV NAME(LOC) 3E.C; GLUCOSE,POINT OF CARE 164 MG/DL (70-110)
[2019-04-21 21:20] LABS: GLUCOMETER DEV NAME(LOC) 3E.C; GLUCOSE,POINT OF CARE 136 MG/DL (70-110)
[2019-04-22 06:21] LABS: GLUCOMETER DEV NAME(LOC) 3E.C; GLUCOSE,POINT OF CARE 87 MG/DL (70-110)
[2019-04-22] MEDS: FERROUS FUM PO SCH (08:29)
[2019-04-22] MEDS: PRENATAL VIT PO SCH (08:29)
[2019-04-22] MEDS: [UNRECOGNIZED DRUG - OTHER] PO SCH (08:29)
[2019-04-22] MEDS: OLANZapine 5 MG RAPDIS TABLET PO SCH ×2 (08:29→20:15)
[2019-04-22 08:38] VITALS: BP 123/62
[2019-04-22 09:40] LABS: GLUCOMETER DEV NAME(LOC) 3E.C; GLUCOSE,POINT OF CARE 125 MG/DL (70-110)
[2019-04-22 13:15] LABS: GLUCOMETER DEV NAME(LOC) 3E.C; GLUCOSE,POINT OF CARE 130 MG/DL (70-110)
[2019-04-22 19:27] VITALS: BP 131/79
[2019-04-22 21:20] LABS: GLUCOMETER DEV NAME(LOC) 3E.C; GLUCOSE,POINT OF CARE 122 MG/DL (70-110)
[2019-04-23 06:36] LABS: GLUCOMETER DEV NAME(LOC) 3E.C; GLUCOSE,POINT OF CARE 96 MG/DL (70-110)
[2019-04-23] MEDS: PRENATAL VIT PO SCH (08:51)
[2019-04-23] MEDS: [UNRECOGNIZED DRUG - OTHER] PO SCH (08:51)
[2019-04-23] MEDS: FERROUS FUM PO SCH (08:51)
[2019-04-23] MEDS: OLANZapine 5 MG RAPDIS TABLET PO SCH ×2 (08:52→20:39)
[2019-04-23 09:23] VITALS: BP 117/72
[2019-04-23 09:45] LABS: GLUCOMETER DEV NAME(LOC) 3E.C; GLUCOSE,POINT OF CARE 96 MG/DL (70-110)
[2019-04-23 13:10] LABS: GLUCOMETER DEV NAME(LOC) 3E.C; GLUCOSE,POINT OF CARE 131 MG/DL (70-110)
[2019-04-23 16:28] VITALS: BP 138/80
[2019-04-23 18:21] LABS: GLUCOMETER DEV NAME(LOC) 3E.C; GLUCOSE,POINT OF CARE 190 MG/DL (70-110)
[2019-04-23 20:45] LABS: GLUCOMETER DEV NAME(LOC) 3E.C; GLUCOSE,POINT OF CARE 126 MG/DL (70-110)
[2019-04-24 06:35] LABS: GLUCOMETER DEV NAME(LOC) 3E.C; GLUCOSE,POINT OF CARE 89 MG/DL (70-110)
[2019-04-24 08:00] VITALS: BP 119/64
[2019-04-24] MEDS: OLANZapine 5 MG RAPDIS TABLET PO SCH ×2 (08:26→22:03)
[2019-04-24] MEDS: [UNRECOGNIZED DRUG - OTHER] PO SCH (08:26)
[2019-04-24] MEDS: FERROUS FUM PO SCH (08:26)
[2019-04-24] MEDS: PRENATAL VIT PO SCH (08:26)
[2019-04-24 16:26] VITALS: BP 121/77
[2019-04-25 06:31] LABS: GLUCOMETER DEV NAME(LOC) 3E.C; GLUCOSE,POINT OF CARE 85 MG/DL (70-110)
[2019-04-25 08:08] VITALS: BP 109/63
[2019-04-25] MEDS: FERROUS FUM PO SCH (08:21)
[2019-04-25] MEDS: [UNRECOGNIZED DRUG - OTHER] PO SCH (08:21)
[2019-04-25] MEDS: OLANZapine 5 MG RAPDIS TABLET PO SCH ×2 (08:21→20:22)
[2019-04-25] MEDS: PRENATAL VIT PO SCH (08:21)
[2019-04-25 13:05] LABS: GLUCOMETER DEV NAME(LOC) 3E.C; GLUCOSE,POINT OF CARE 134 MG/DL (70-110)
[2019-04-25 18:00] VITALS: BP 114/60
[2019-04-25 18:15] LABS: GLUCOMETER DEV NAME(LOC) 3E.C; GLUCOSE,POINT OF CARE 141 MG/DL (70-110)
[2019-04-25 20:31] LABS: GLUCOMETER DEV NAME(LOC) 3E.C; GLUCOSE,POINT OF CARE 133 MG/DL (70-110)
[2019-04-25 23:44] LABS: APPEARANCE,URINE CLOUDY (CLEAR); BILIRUBIN,URINE NEGATIVE (NEGATIVE); GLUCOSE, URINE (UA) NEGATIVE (NEGATIVE); KETONES,URINE NEGATIVE (NEGATIVE); LEUKOCYTE ESTERASE ,URINE NEGATIVE (NEGATIVE); NITRATE,URINE NEGATIVE (NEGATIVE); OCCULT BLOOD,URINE NEGATIVE (NEGATIVE); PROTEIN,URINE NEGATIVE (NEGATIVE); UROBILINOGEN,URINE 0.2 mg/dL (<=1.0)
[2019-04-26 06:35] LABS: GLUCOMETER DEV NAME(LOC) 3E.C; GLUCOSE,POINT OF CARE 90 MG/DL (70-110)
[2019-04-26 08:05] VITALS: BP 108/68
[2019-04-26] MEDS: OLANZapine 5 MG RAPDIS TABLET PO SCH (08:12)
[2019-04-26 09:00] LABS: GLUCOMETER DEV NAME(LOC) 3E.C; GLUCOSE,POINT OF CARE 140 MG/DL (70-110)
[2019-04-26] MEDS ORDERED: FERROUS FUM PO SCH ×2 (09:00→09:15)
[2019-04-26] MEDS ORDERED: [UNRECOGNIZED DRUG - OTHER] PO SCH ×2 (09:00→09:15)
[2019-04-26] MEDS ORDERED: PRENATAL VIT PO SCH ×2 (09:00→09:15)
== END 2019-04-26 09:54 | disposition short-term general hospital (02) | DRG 832 ==
LOC: EMS 13:55 → 3EC 17:29
DX: O99.343 Other mental disorders complicating pregnancy, third trimester (principal); O23.43 Unspecified infection of urinary tract in pregnancy, third trimester; O99.213 Obesity complicating pregnancy, third trimester; E66.9 Obesity, unspecified; F25.0 Schizoaffective disorder, bipolar type; O99.513 Diseases of the respiratory system complicating pregnancy, third trimester; J45.909 Unspecified asthma, uncomplicated; O24.410 Gestational diabetes mellitus in pregnancy, diet controlled; K59.00 Constipation, unspecified; O99.613 Diseases of the digestive system complicating pregnancy, third trimester; O76 Abnormality in fetal heart rate and rhythm complicating labor and delivery; Z3A.30 30 weeks gestation of pregnancy; Z59.0 Homelessness; Z91.14 Patient's other noncompliance with medication regimen; Z91.040 Latex allergy status; Z91.018 Allergy to other foods
CPT/HCPCS: 76805; 82951; 82952; 83036; 84443; 86592; 86762; 86787; 86901; 87081; 87340; 87491; 87591; J3535; Q0162

== ENCOUNTER 2019-04-26 10:35 | Observation (INO) | payer OTHER ==
[2019-04-26 12:27] VITALS: BP 103/61
[2019-04-26] MEDS ORDERED: RINGERS SOLUTION,LACTATED 1,000 ML IV PRN (12:40)
[2019-04-26] MEDS ORDERED: METOCLOPRAMIDE HCL 5 MG/ML 2 ML VIAL IVP PRN (12:45)
[2019-04-26] MEDS ORDERED: OXYGEN THERAPY IH SCH (12:45)
[2019-04-26] MEDS ORDERED: CITRIC ACID/SODIUM CITRATE 30 ML SOLUTION UDCUP PO PRN (12:45)
[2019-04-26] MEDS ORDERED: BETAMETHASONE SOLUSPAN 6 MG/ML 5 ML VIAL IM SCH (13:00)
[2019-04-26 13:30] LABS: BASOPHILS % (AUTO) 0.2 % (0.0-2.0); HEMATOCRIT 35.4 % (36-46); HEMOGLOBIN 11.8 g/dL (12.0-16.0); LYMPHOCYTES # (AUTO) 1.4 K/uL (1.0-4.8); LYMPHOCYTES % (AUTO) 21.7 % (22.0-44.0); MEAN CORPUSCULAR HEMOGLOBIN 30.3 pg (26.0-34.0); MEAN CORPUSCULAR HGB CONC 33.4 G/dL (31.0-37.0); MEAN CORPUSCULAR VOLUME 91 fL (80-100); MONOCYTES # (AUTO) 0.5 K/uL (0.1-1.0); MONOCYTES % (AUTO) 7.2 % (2.0-9.0); NEUTROPHILS # (AUTO) 4.6 K/uL (1.8-7.7); NEUTROPHILS % (AUTO) 69.9 % (40.0-70.0); PLATELET COUNT (AUTO)-OB 196 K/uL (150-450); RED CELL DISTRIBUTION WIDTH 14.4 % (11.5-14.5)
[2019-04-26] MEDS: RINGERS SOLUTION,LACTATED 1,000 ML IV SCH ×3 (14:09→22:23)
[2019-04-26 19:55] LABS: GLUCOMETER DEV NAME(LOC) 4S.; GLUCOSE,POINT OF CARE 104 MG/DL (70-110)
[2019-04-26] MEDS: OLANZapine 5 MG RAPDIS TABLET PO SCH (20:59)
[2019-04-27 06:36] LABS: GLUCOMETER DEV NAME(LOC) 4S.; GLUCOSE,POINT OF CARE 141 MG/DL (70-110)
[2019-04-27] MEDS: RINGERS SOLUTION,LACTATED 1,000 ML IV SCH (06:51)
[2019-04-27] MEDS ORDERED: [UNRECOGNIZED DRUG - OTHER] PO SCH (09:00)
[2019-04-27] MEDS ORDERED: FERROUS FUM PO SCH (09:00)
[2019-04-27] MEDS ORDERED: PRENATAL VIT PO SCH (09:00)
[2019-04-27] MEDS: OLANZapine 5 MG RAPDIS TABLET PO SCH (09:03)
[2019-04-27 09:20] LABS: GLUCOMETER DEV NAME(LOC) 4S.; GLUCOSE,POINT OF CARE 152 MG/DL (70-110)
[2019-04-27 13:50] LABS: GLUCOMETER DEV NAME(LOC) 4S.; GLUCOSE,POINT OF CARE 138 MG/DL (70-110)
== END 2019-04-27 14:53 | disposition home or self-care (01) ==
LOC: 4S 10:35 → UNDOADMOB 10:35 → UNDODISOB 04-27 14:53
PROVIDERS: ADMIT Obstetrics & Gynecology; ATTEND Obstetrics & Gynecology
DX: O36.8130 Decreased fetal movements, third trimester, not applicable or unspecified (principal); O99.342 Other mental disorders complicating pregnancy, second trimester; F25.9 Schizoaffective disorder, unspecified; F31.9 Bipolar disorder, unspecified; O24.419 Gestational diabetes mellitus in pregnancy, unspecified control; Z3A.31 31 weeks gestation of pregnancy
CPT/HCPCS: 36415 ×2; 76811; 81002; 82962 ×2; 83036; 85025; 86850; 86900; 86901; 96372; G0378 ×2; J0702; J7120 ×2

== ENCOUNTER 2019-04-27 17:00 | Inpatient (IN) | payer OTHER, MEDICAID ==
[~2019-04-27] VITALS: Ht 162.6 cm; Wt 122.7 kg
[2019-04-27 17:30] VITALS: BP 140/84
[2019-04-27] MEDS ORDERED: DOCUSATE SODIUM 100 MG CAPSULE PO PRN (20:30)
[2019-04-27] MEDS ORDERED: MAGNESIUM HYDROXIDE SUSPENSION 30 ML UDCUP PO PRN (20:30)
[2019-04-27] MEDS ORDERED: GuaiFENesin/D-METHORPHAN [SUGAR-FREE] 200-20MG/10 ML SYRUP UDCUP PO PRN (20:30)
[2019-04-27] MEDS ORDERED: LOPERAMIDE HCL 2 MG CAPSULE PO PRN (20:30)
[2019-04-27] MEDS ORDERED: ALBUTEROL SULFATE HFA 90 MCG/PUFF 8 GM INHALER IH PRN (20:30)
[2019-04-27] MEDS ORDERED: ONDANSETRON HCL 4 MG TABLET PO PRN (20:30)
[2019-04-27] MEDS ORDERED: PETROLATUM,WHITE 28 GM JELLY TP PRN (20:30)
[2019-04-27] MEDS ORDERED: CloNIDine HCL 0.1 MG TABLET PO PRN (20:30)
[2019-04-27] MEDS: OLANZapine 5 MG RAPDIS TABLET PO SCH (21:01)
[2019-04-27] MEDS ORDERED: BETAMETHASONE SOLUSPAN 6 MG/ML 5 ML VIAL ONE (21:19)
[2019-04-27] MEDS ORDERED: BETAMETHASONE SOLUSPAN 6 MG/ML 5 ML VIAL IM ONE (21:30)
[2019-04-28 05:30] LABS: GLUCOMETER DEV NAME(LOC) 3E.I; GLUCOSE,POINT OF CARE 115 MG/DL (70-110)
[2019-04-28 07:14] LABS: BASOPHILS % (AUTO) 0.1 % (0.0-2.0); EOSINOPHILS % (AUTO) 0 % (1.0-6.0); HEMOGLOBIN 11.5 g/dL (12.0-16.0); LYMPHOCYTES # (AUTO) 1.2 K/uL (1.0-4.8); MEAN CORPUSCULAR HEMOGLOBIN 30.6 pg (26.0-34.0); MEAN CORPUSCULAR HGB CONC 33.9 G/dL (31.0-37.0); MEAN CORPUSCULAR VOLUME 90 fL (80-100); MONOCYTES # (AUTO) 0.5 K/uL (0.1-1.0); MONOCYTES % (AUTO) 5.3 % (2.0-9.0); NEUTROPHILS # (AUTO) 7.8 K/uL (1.8-7.7); NEUTROPHILS % (AUTO) 81.6 % (40.0-70.0); PLATELET COUNT (AUTO) 186 K/uL (150-450); RED BLOOD CELL COUNT(AUTO) 3.77 MIL/uL (4.00-5.20); RED CELL DISTRIBUTION WIDTH 14.2 % (11.5-14.5)
[2019-04-28 07:39] LABS: HEMOGLOBIN A1C 5.6 % (4.5-6.2)
[2019-04-28 08:10] LABS: ALANINE AMINOTRANSFERASE 13 U/L (12-78); ALBUMIN 2.8 g/dL (3.4-5.0); ALKALINE PHOSPHATASE 116 U/L (46-116); ANION GAP 12 mmol/L (8-16); ASPARTATE AMINOTRANSFERASE 11 U/L (15-37); BILIRUBIN,TOTAL 0.2 mg/dL (0.1-1.0); CALCIUM, TOTAL 8.9 mg/dL (8.8-10.5); CARBON DIOXIDE 22 mmol/L (22-29); CHLORIDE 104 mmol/L (98-107); CHOL/HDL RATIO 3.1 (3.9-5.7); CHOLESTEROL 188 mg/dL (131-200); CREATININE 0.68 mg/dL (0.60-1.30); GLOMERULAR FILTR. RATE CALC > 60 mL/min (>60); GLUCOSE,RANDOM 118 mg/dL (70-110); HDL CHOLESTEROL 61 mg/dL (40-60); LDL CHOL (CALC.) 113 mg/dL (0-130); SODIUM SERUM 138 mmol/L (136-145); THYROID STIMULATING HORMONE 0.27 uIU/mL (0.36-3.74); TOTAL PROTEIN, SERUM 6.2 g/dL (6.4-8.2); TRIGLYCERIDES 71 mg/dL (15-150)
[2019-04-28 08:18] LABS: UREA NITROGEN, BLOOD 9 mg/dL (7-18)
[2019-04-28] MEDS: PRENATAL NO.137/IRON/FOLIC ACID TABLET PO SCH (08:38)
[2019-04-28] MEDS: OLANZapine 5 MG RAPDIS TABLET PO SCH ×2 (08:38→20:10)
[2019-04-28 11:04] VITALS: BP 149/84
[2019-04-29 00:40] VITALS: BP 121/64
[2019-04-29 06:10] LABS: GLUCOMETER DEV NAME(LOC) 3E.I; GLUCOSE,POINT OF CARE 98 MG/DL (70-110)
[2019-04-29] MEDS: OLANZapine 5 MG RAPDIS TABLET PO SCH ×2 (08:11→20:22)
[2019-04-29] MEDS: PRENATAL NO.137/IRON/FOLIC ACID TABLET PO SCH (08:11)
[2019-04-29 13:34] VITALS: BP 131/68
[2019-04-29 19:46] VITALS: BP 141/76
[2019-04-30 03:27] VITALS: BP 145/90
[2019-04-30 05:32] LABS: GLUCOMETER DEV NAME(LOC) 3E.I; GLUCOSE,POINT OF CARE 123 MG/DL (70-110)
[2019-04-30] MEDS: PRENATAL NO.137/IRON/FOLIC ACID TABLET PO SCH (08:26)
[2019-04-30] MEDS: OLANZapine 5 MG RAPDIS TABLET PO SCH ×2 (08:26→21:23)
[2019-04-30 09:09] VITALS: BP 123/89
[2019-04-30 14:10] LABS: GLUCOMETER DEV NAME(LOC) 3EX.; GLUCOSE,POINT OF CARE 102 MG/DL (70-110)
[2019-04-30 18:45] LABS: GLUCOMETER DEV NAME(LOC) 3EX.; GLUCOSE,POINT OF CARE 191 MG/DL (70-110)
[2019-04-30 21:41] LABS: GLUCOMETER DEV NAME(LOC) 3EX.; GLUCOSE,POINT OF CARE 201 MG/DL (70-110)
[2019-05-01 06:31] LABS: GLUCOMETER DEV NAME(LOC) 3E.I; GLUCOSE,POINT OF CARE 125 MG/DL (70-110)
[2019-05-01] MEDS: PRENATAL NO.137/IRON/FOLIC ACID TABLET PO SCH (08:50)
[2019-05-01] MEDS: OLANZapine 5 MG RAPDIS TABLET PO SCH ×2 (08:51→20:40)
[2019-05-01 09:20] LABS: GLUCOMETER DEV NAME(LOC) 3E.I; GLUCOSE,POINT OF CARE 138 MG/DL (70-110)
[2019-05-01 14:06] VITALS: BP 142/70
[2019-05-01 17:09] VITALS: BP 121/63
[2019-05-01 20:54] LABS: GLUCOMETER DEV NAME(LOC) 3E.I; GLUCOSE,POINT OF CARE 134 MG/DL (70-110)
[2019-05-02 06:21] LABS: GLUCOMETER DEV NAME(LOC) 3E.I; GLUCOSE,POINT OF CARE 107 MG/DL (70-110)
[2019-05-02] MEDS: PRENATAL NO.137/IRON/FOLIC ACID TABLET PO SCH (08:39)
[2019-05-02] MEDS: OLANZapine 5 MG RAPDIS TABLET PO SCH ×2 (08:39→20:46)
[2019-05-02 13:00] LABS: GLUCOMETER DEV NAME(LOC) 3EX.; GLUCOSE,POINT OF CARE 146 MG/DL (70-110)
[2019-05-02 18:45] LABS: GLUCOMETER DEV NAME(LOC) 3EX.; GLUCOSE,POINT OF CARE 137 MG/DL (70-110)
[2019-05-02 20:55] LABS: GLUCOMETER DEV NAME(LOC) 3EX.; GLUCOSE,POINT OF CARE 122 MG/DL (70-110)
[2019-05-03 05:25] LABS: GLUCOMETER DEV NAME(LOC) 3E.I; GLUCOSE,POINT OF CARE 113 MG/DL (70-110)
[2019-05-03] MEDS: PRENATAL NO.137/IRON/FOLIC ACID TABLET PO SCH (08:36)
[2019-05-03] MEDS: OLANZapine 5 MG RAPDIS TABLET PO SCH ×2 (08:36→20:30)
[2019-05-03 08:51] LABS: GLUCOMETER DEV NAME(LOC) 3EX.; GLUCOSE,POINT OF CARE 127 MG/DL (70-110)
[2019-05-03 09:50] LABS: APPEARANCE,URINE CLEAR (CLEAR); BILIRUBIN,URINE NEGATIVE (NEGATIVE); GLUCOSE, URINE (UA) 100 mg/dL (NEGATIVE); KETONES,URINE TRACE mg/dL (NEGATIVE); LEUKOCYTE ESTERASE ,URINE NEGATIVE (NEGATIVE); NITRATE,URINE NEGATIVE (NEGATIVE); OCCULT BLOOD,URINE NEGATIVE (NEGATIVE); PH,URINE 6.5 (5.0-8.0); PROTEIN,URINE NEGATIVE (NEGATIVE); UROBILINOGEN,URINE 0.2 mg/dL (<=1.0)
[2019-05-03 09:53] LABS: AMPHET/METH SCREEN,URINE NEGATIVE (NEGATIVE); BARBITURATE SCREEN, URINE NEGATIVE (NEGATIVE); BENZODIAZEPINES SCREEN,URINE NEGATIVE (NEGATIVE); CANNABINOID SCREEN,URINE NEGATIVE (NEGATIVE); COCAINE SCREEN,URINE NEGATIVE (NEGATIVE); METHADONE SCREEN, URINE NEGATIVE (NEGATIVE); OPIATE SCREEN,URINE NEGATIVE (NEGATIVE)
[2019-05-03 09:54] LABS: PHENCYCLIDINE SCREEN,URINE NEGATIVE (NEGATIVE)
[2019-05-03 10:02] LABS: BACTERIA,URINE Rare /HPF (None Seen); RBC,URINE 0-2 /HPF (0-2); WBC,URINE None Seen /HPF (0-5)
[2019-05-03 10:03] LABS: SQUAMOUS EPITHELIAL CELL,UR Rare /LPF (None Seen)
[2019-05-03 13:25] LABS: GLUCOMETER DEV NAME(LOC) 3EX.; GLUCOSE,POINT OF CARE 130 MG/DL (70-110)
[2019-05-03 17:24] VITALS: BP 107/63
[2019-05-03 19:02] LABS: GLUCOMETER DEV NAME(LOC) 3EX.; GLUCOSE,POINT OF CARE 136 MG/DL (70-110)
[2019-05-04 00:36] VITALS: BP 124/85
[2019-05-04 06:25] LABS: GLUCOMETER DEV NAME(LOC) 3E.I; GLUCOSE,POINT OF CARE 97 MG/DL (70-110)
[2019-05-04] MEDS: OLANZapine 5 MG RAPDIS TABLET PO SCH ×2 (08:49→20:54)
[2019-05-04] MEDS: PRENATAL NO.137/IRON/FOLIC ACID TABLET PO SCH (08:49)
[2019-05-04 09:21] VITALS: BP 134/76
[2019-05-04 09:35] LABS: GLUCOMETER DEV NAME(LOC) 3EX.; GLUCOSE,POINT OF CARE 94 MG/DL (70-110)
[2019-05-04 13:15] LABS: GLUCOMETER DEV NAME(LOC) 3EX.; GLUCOSE,POINT OF CARE 136 MG/DL (70-110)
[2019-05-04 16:45] VITALS: BP 104/67
[2019-05-04 19:15] LABS: GLUCOMETER DEV NAME(LOC) 3E.I; GLUCOSE,POINT OF CARE 158 MG/DL (70-110)
[2019-05-04 22:00] LABS: GLUCOMETER DEV NAME(LOC) 3E.I; GLUCOSE,POINT OF CARE 207 MG/DL (70-110)
[2019-05-05] MEDS: PRENATAL NO.137/IRON/FOLIC ACID TABLET PO SCH (09:05)
[2019-05-05] MEDS: OLANZapine 5 MG RAPDIS TABLET PO SCH ×2 (09:05→20:35)
[2019-05-05 09:35] VITALS: BP 115/71
[2019-05-05 12:06] LABS: GLUCOMETER DEV NAME(LOC) 3E.I; GLUCOSE,POINT OF CARE 98 MG/DL (70-110)
[2019-05-05 13:35] LABS: GLUCOMETER DEV NAME(LOC) 3EX.; GLUCOSE,POINT OF CARE 102 MG/DL (70-110)
[2019-05-05 17:00] VITALS: BP 114/61
[2019-05-05 18:16] LABS: GLUCOMETER DEV NAME(LOC) 3EX.; GLUCOSE,POINT OF CARE 164 MG/DL (70-110)
[2019-05-06 06:21] LABS: GLUCOMETER DEV NAME(LOC) 3E.I; GLUCOSE,POINT OF CARE 95 MG/DL (70-110)
[2019-05-06] MEDS: PRENATAL NO.137/IRON/FOLIC ACID TABLET PO SCH (09:14)
[2019-05-06] MEDS: OLANZapine 5 MG RAPDIS TABLET PO SCH ×2 (09:15→20:07)
[2019-05-06 09:52] VITALS: BP 123/73
[2019-05-06 17:00] VITALS: BP 123/48
[2019-05-06 20:11] LABS: GLUCOMETER DEV NAME(LOC) 3E.I; GLUCOSE,POINT OF CARE 123 MG/DL (70-110)
[2019-05-07] VITALS: BP 107/60
[2019-05-07] MEDS: ACETAMINOPHEN 325 MG TABLET PO PRN ×2 (00:02→22:22)
[2019-05-07 06:21] LABS: GLUCOMETER DEV NAME(LOC) 3E.I; GLUCOSE,POINT OF CARE 93 MG/DL (70-110)
[2019-05-07] MEDS: OLANZapine 5 MG RAPDIS TABLET PO SCH ×2 (09:24→20:39)
[2019-05-07] MEDS: PRENATAL NO.137/IRON/FOLIC ACID TABLET PO SCH (09:24)
[2019-05-07 10:27] VITALS: BP 134/78
[2019-05-07 16:55] VITALS: BP 136/81
[2019-05-07 19:25] LABS: GLUCOMETER DEV NAME(LOC) 3EX.; GLUCOSE,POINT OF CARE 161 MG/DL (70-110)
[2019-05-07 22:20] VITALS: BP 143/86
[2019-05-08 05:30] LABS: GLUCOMETER DEV NAME(LOC) 3E.I; GLUCOSE,POINT OF CARE 93 MG/DL (70-110)
[2019-05-08] MEDS: OLANZapine 5 MG RAPDIS TABLET PO SCH ×2 (09:00→20:17)
[2019-05-08] MEDS: PRENATAL NO.137/IRON/FOLIC ACID TABLET PO SCH (09:00)
[2019-05-08 10:20] VITALS: BP 136/81
[2019-05-08 16:25] VITALS: BP 119/73
[2019-05-08 18:25] LABS: GLUCOMETER DEV NAME(LOC) 3EX.; GLUCOSE,POINT OF CARE 117 MG/DL (70-110)
[2019-05-08 20:18] VITALS: BP 127/78
[2019-05-08] MEDS: ACETAMINOPHEN 325 MG TABLET PO PRN (20:18)
[2019-05-08 20:30] LABS: GLUCOMETER DEV NAME(LOC) 3EX.; GLUCOSE,POINT OF CARE 125 MG/DL (70-110)
[2019-05-09 00:12] VITALS: BP 118/72
[2019-05-09 05:45] LABS: GLUCOMETER DEV NAME(LOC) 3E.I; GLUCOSE,POINT OF CARE 95 MG/DL (70-110)
[2019-05-09 06:36] LABS: ALANINE AMINOTRANSFERASE 12 U/L (12-78); ALBUMIN 2.7 g/dL (3.4-5.0); ALKALINE PHOSPHATASE 133 U/L (46-116); ANION GAP 10 mmol/L (8-16); ASPARTATE AMINOTRANSFERASE 10 U/L (15-37); BILIRUBIN,TOTAL 0.2 mg/dL (0.1-1.0); CALCIUM, TOTAL 9.2 mg/dL (8.8-10.5); CARBON DIOXIDE 25 mmol/L (22-29); CHLORIDE 102 mmol/L (98-107); CREATININE 0.64 mg/dL (0.60-1.30); GLOMERULAR FILTR. RATE CALC > 60 mL/min (>60); GLUCOSE,RANDOM 97 mg/dL (70-110); POTASSIUM 4.1 mmol/L (3.5-5.1); SODIUM SERUM 137 mmol/L (136-145); TOTAL PROTEIN, SERUM 6.1 g/dL (6.4-8.2); UREA NITROGEN, BLOOD 10 mg/dL (7-18); URIC ACID 2.8 mg/dL (2.6-7.2)
[2019-05-09] MEDS: OLANZapine 5 MG RAPDIS TABLET PO SCH ×2 (07:47→20:26)
[2019-05-09] MEDS: PRENATAL NO.137/IRON/FOLIC ACID TABLET PO SCH (07:47)
[2019-05-09 08:05] LABS: GLUCOMETER DEV NAME(LOC) 3EX.; GLUCOSE,POINT OF CARE 138 MG/DL (70-110)
[2019-05-09 09:06] VITALS: BP 141/98
[2019-05-09 19:34] VITALS: BP 149/78
[2019-05-09 19:40] LABS: GLUCOMETER DEV NAME(LOC) 3EX.; GLUCOSE,POINT OF CARE 151 MG/DL (70-110)
[2019-05-10 05:40] LABS: GLUCOMETER DEV NAME(LOC) 3E.I; GLUCOSE,POINT OF CARE 88 MG/DL (70-110)
[2019-05-10] MEDS: OLANZapine 5 MG RAPDIS TABLET PO SCH ×2 (08:02→20:58)
[2019-05-10] MEDS: PRENATAL NO.137/IRON/FOLIC ACID TABLET PO SCH (08:02)
[2019-05-10 08:05] VITALS: BP 132/73
[2019-05-10 08:21] LABS: GLUCOMETER DEV NAME(LOC) 3EX.; GLUCOSE,POINT OF CARE 107 MG/DL (70-110)
[2019-05-10 18:25] LABS: GLUCOMETER DEV NAME(LOC) 3EX.; GLUCOSE,POINT OF CARE 103 MG/DL (70-110)
[2019-05-11 06:17] LABS: GLUCOMETER DEV NAME(LOC) 3E.I; GLUCOSE,POINT OF CARE 89 MG/DL (70-110)
[2019-05-11 08:00] VITALS: BP 128/83
[2019-05-11] MEDS: OLANZapine 5 MG RAPDIS TABLET PO SCH ×2 (08:05→20:41)
[2019-05-11] MEDS: PRENATAL NO.137/IRON/FOLIC ACID TABLET PO SCH (08:05)
[2019-05-11 09:15] LABS: GLUCOMETER DEV NAME(LOC) 3EX.; GLUCOSE,POINT OF CARE 180 MG/DL (70-110)
[2019-05-11 12:36] LABS: GLUCOMETER DEV NAME(LOC) 3EX.; GLUCOSE,POINT OF CARE 125 MG/DL (70-110)
[2019-05-11 16:44] VITALS: BP 118/65
[2019-05-11 18:26] LABS: GLUCOMETER DEV NAME(LOC) 3EX.; GLUCOSE,POINT OF CARE 121 MG/DL (70-110)
[2019-05-11] MEDS: ACETAMINOPHEN 325 MG TABLET PO PRN (20:43)
[2019-05-11 20:44] VITALS: BP 120/82
[2019-05-12 02:04] VITALS: BP 145/92
[2019-05-12 08:25] VITALS: BP 125/84
[2019-05-12] MEDS: OLANZapine 5 MG RAPDIS TABLET PO SCH ×2 (09:31→20:06)
[2019-05-12] MEDS: PRENATAL NO.137/IRON/FOLIC ACID TABLET PO SCH (09:53)
[2019-05-12 10:35] LABS: GLUCOMETER DEV NAME(LOC) 3E.C; GLUCOSE,POINT OF CARE 105 MG/DL (70-110)
[2019-05-12 15:45] LABS: GLUCOMETER DEV NAME(LOC) 3E.I; GLUCOSE,POINT OF CARE 87 MG/DL (70-110)
[2019-05-12 16:24] VITALS: BP 122/74
[2019-05-12 18:31] LABS: GLUCOMETER DEV NAME(LOC) 3EX.; GLUCOSE,POINT OF CARE 130 MG/DL (70-110)
[2019-05-13 08:00] VITALS: BP 135/89
[2019-05-13] MEDS: PRENATAL NO.137/IRON/FOLIC ACID TABLET PO SCH (09:22)
[2019-05-13] MEDS: OLANZapine 5 MG RAPDIS TABLET PO SCH ×2 (09:22→20:13)
[2019-05-13 09:40] LABS: GLUCOMETER DEV NAME(LOC) 3E.I; GLUCOSE,POINT OF CARE 219 MG/DL (70-110)
[2019-05-13 09:40] LABS: GLUCOMETER DEV NAME(LOC) 3E.I; GLUCOSE,POINT OF CARE 92 MG/DL (70-110)
[2019-05-13 11:00] LABS: GLUCOMETER DEV NAME(LOC) 3E.I; GLUCOSE,POINT OF CARE 88 MG/DL (70-110)
[2019-05-13 17:12] VITALS: BP 101/62
[2019-05-14] MEDS: OLANZapine 5 MG RAPDIS TABLET PO SCH ×2 (09:34→20:21)
[2019-05-14] MEDS: PRENATAL NO.137/IRON/FOLIC ACID TABLET PO SCH (09:34)
[2019-05-14 09:58] VITALS: BP 102/67
[2019-05-14 12:21] LABS: GLUCOMETER DEV NAME(LOC) 3E.I; GLUCOSE,POINT OF CARE 106 MG/DL (70-110)
[2019-05-14 12:40] LABS: GLUCOMETER DEV NAME(LOC) 3E.I; GLUCOSE,POINT OF CARE 113 MG/DL (70-110)
[2019-05-14 17:08] VITALS: BP 119/62
[2019-05-15 01:12] VITALS: BP 113/65
[2019-05-15 06:36] LABS: GLUCOMETER DEV NAME(LOC) 3E.I; GLUCOSE,POINT OF CARE 80 MG/DL (70-110)
[2019-05-15 08:58] VITALS: BP 126/93
[2019-05-15] MEDS: OLANZapine 5 MG RAPDIS TABLET PO SCH ×2 (09:39→20:33)
[2019-05-15] MEDS: PRENATAL NO.137/IRON/FOLIC ACID TABLET PO SCH (09:43)
[2019-05-15 16:25] LABS: GLUCOMETER DEV NAME(LOC) 3E.I; GLUCOSE,POINT OF CARE 144 MG/DL (70-110)
[2019-05-15 16:38] VITALS: BP 138/81
[2019-05-15] MEDS: ACETAMINOPHEN 325 MG TABLET PO PRN (22:14)
[2019-05-15 22:15] VITALS: BP 129/78
[2019-05-16 01:17] VITALS: BP 127/83
[2019-05-16 06:16] LABS: GLUCOMETER DEV NAME(LOC) 3E.I; GLUCOSE,POINT OF CARE 77 MG/DL (70-110)
[2019-05-16] MEDS: OLANZapine 5 MG RAPDIS TABLET PO SCH ×2 (08:24→20:22)
[2019-05-16] MEDS: PRENATAL NO.137/IRON/FOLIC ACID TABLET PO SCH (08:25)
[2019-05-16 08:46] VITALS: BP 136/73
[2019-05-16 12:38] LABS: GLUCOMETER DEV NAME(LOC) 3EX.; GLUCOSE,POINT OF CARE 127 MG/DL (70-110)
[2019-05-16 19:42] LABS: GLUCOMETER DEV NAME(LOC) 3EX.; GLUCOSE,POINT OF CARE 128 MG/DL (70-110)
[2019-05-16 20:27] VITALS: BP 111/72
[2019-05-16 21:57] VITALS: BP 129/84
[2019-05-16] MEDS: ACETAMINOPHEN 325 MG TABLET PO PRN (21:57)
[2019-05-17 00:20] VITALS: BP 117/90
[2019-05-17 07:02] LABS: GLUCOMETER DEV NAME(LOC) 3E.I; GLUCOSE,POINT OF CARE 106 MG/DL (70-110)
[2019-05-17] MEDS: OLANZapine 5 MG RAPDIS TABLET PO SCH ×2 (08:49→20:26)
[2019-05-17 09:09] VITALS: BP 142/91
[2019-05-17 09:30] LABS: GLUCOMETER DEV NAME(LOC) 3E.I; GLUCOSE,POINT OF CARE 101 MG/DL (70-110)
[2019-05-17] MEDS: PRENATAL NO.137/IRON/FOLIC ACID TABLET PO SCH (11:17)
[2019-05-17 12:21] LABS: GLUCOMETER DEV NAME(LOC) 3E.I; GLUCOSE,POINT OF CARE 89 MG/DL (70-110)
[2019-05-17 16:18] VITALS: BP 109/67
[2019-05-17 19:00] LABS: GLUCOMETER DEV NAME(LOC) 3EX.; GLUCOSE,POINT OF CARE 70 MG/DL (70-110)
[2019-05-17] MEDS: ACETAMINOPHEN 325 MG TABLET PO PRN (23:35)
[2019-05-18 00:03] VITALS: BP 114/69
[2019-05-18 06:32] LABS: GLUCOMETER DEV NAME(LOC) 3E.I; GLUCOSE,POINT OF CARE 82 MG/DL (70-110)
[2019-05-18] MEDS: OLANZapine 5 MG RAPDIS TABLET PO SCH ×2 (08:43→20:33)
[2019-05-18] MEDS: PRENATAL NO.137/IRON/FOLIC ACID TABLET PO SCH (08:43)
[2019-05-18 09:29] VITALS: BP 122/68
[2019-05-18 12:55] LABS: GLUCOMETER DEV NAME(LOC) 3EX.; GLUCOSE,POINT OF CARE 87 MG/DL (70-110)
[2019-05-18 16:26] VITALS: BP 123/57
[2019-05-18 18:16] LABS: GLUCOMETER DEV NAME(LOC) 3EX.; GLUCOSE,POINT OF CARE 137 MG/DL (70-110)
[2019-05-18 20:33] VITALS: BP 124/72
[2019-05-18] MEDS: ACETAMINOPHEN 325 MG TABLET PO PRN (20:33)
[2019-05-19 02:07] VITALS: BP 106/65
[2019-05-19 05:41] LABS: GLUCOMETER DEV NAME(LOC) 3E.I; GLUCOSE,POINT OF CARE 77 MG/DL (70-110)
[2019-05-19 08:00] VITALS: BP 111/64
[2019-05-19] MEDS: OLANZapine 5 MG RAPDIS TABLET PO SCH ×2 (09:30→20:51)
[2019-05-19] MEDS: PRENATAL NO.137/IRON/FOLIC ACID TABLET PO SCH (09:31)
[2019-05-19 13:43] LABS: GLUCOMETER DEV NAME(LOC) 3E.I; GLUCOSE,POINT OF CARE 119 MG/DL (70-110)
[2019-05-19 18:58] LABS: GLUCOMETER DEV NAME(LOC) 3E.I; GLUCOSE,POINT OF CARE 139 MG/DL (70-110)
[2019-05-19 20:55] VITALS: BP 125/102
[2019-05-19] MEDS: ACETAMINOPHEN 325 MG TABLET PO PRN (20:55)
[2019-05-19 21:03] LABS: GLUCOMETER DEV NAME(LOC) 3E.I; GLUCOSE,POINT OF CARE 105 MG/DL (70-110)
[2019-05-20 05:49] LABS: GLUCOMETER DEV NAME(LOC) 3E.I; GLUCOSE,POINT OF CARE 79 MG/DL (70-110)
[2019-05-20] MEDS: OLANZapine 5 MG RAPDIS TABLET PO SCH ×2 (08:33→20:02)
[2019-05-20] MEDS: PRENATAL NO.137/IRON/FOLIC ACID TABLET PO SCH (08:34)
[2019-05-20 10:11] LABS: GLUCOMETER DEV NAME(LOC) 3E.I; GLUCOSE,POINT OF CARE 82 MG/DL (70-110)
[2019-05-20 12:39] VITALS: BP 110/69
[2019-05-20 18:27] LABS: GLUCOMETER DEV NAME(LOC) 3EX.; GLUCOSE,POINT OF CARE 113 MG/DL (70-110)
[2019-05-20 19:01] VITALS: BP 119/65
[2019-05-20 20:02] VITALS: BP 147/86
[2019-05-20] MEDS: ACETAMINOPHEN 325 MG TABLET PO PRN (20:02)
[2019-05-20 20:20] LABS: GLUCOMETER DEV NAME(LOC) 3EX.; GLUCOSE,POINT OF CARE 83 MG/DL (70-110)
[2019-05-21 00:06] VITALS: BP 101/64
[2019-05-21] MEDS: OLANZapine 5 MG RAPDIS TABLET PO SCH ×2 (08:20→20:44)
[2019-05-21 08:24] LABS: GLUCOMETER DEV NAME(LOC) 3EX.; GLUCOSE,POINT OF CARE 119 MG/DL (70-110)
[2019-05-21 09:00] VITALS: BP 148/88
[2019-05-21] MEDS: PRENATAL NO.137/IRON/FOLIC ACID TABLET PO SCH (11:23)
[2019-05-21 13:23] LABS: GLUCOMETER DEV NAME(LOC) 3EX.; GLUCOSE,POINT OF CARE 118 MG/DL (70-110)
[2019-05-21 16:58] LABS: GLUCOMETER DEV NAME(LOC) 3E.I; GLUCOSE,POINT OF CARE 79 MG/DL (70-110)
[2019-05-21 18:00] VITALS: BP 130/69
[2019-05-21 21:08] LABS: GLUCOMETER DEV NAME(LOC) 3EX.; GLUCOSE,POINT OF CARE 111 MG/DL (70-110)
[2019-05-22 01:07] VITALS: BP 118/74
[2019-05-22] MEDS: ACETAMINOPHEN 325 MG TABLET PO PRN (01:18)
[2019-05-22 05:39] LABS: GLUCOMETER DEV NAME(LOC) 3E.I; GLUCOSE,POINT OF CARE 69 MG/DL (70-110)
[2019-05-22 06:19] LABS: GLUCOMETER DEV NAME(LOC) 3E.I; GLUCOSE,POINT OF CARE 100 MG/DL (70-110)
[2019-05-22] MEDS: OLANZapine 5 MG RAPDIS TABLET PO SCH ×2 (07:54→20:46)
[2019-05-22] MEDS: PRENATAL NO.137/IRON/FOLIC ACID TABLET PO SCH (07:54)
[2019-05-22 10:08] VITALS: BP 110/66
[2019-05-22 14:29] LABS: GLUCOMETER DEV NAME(LOC) 3EX.; GLUCOSE,POINT OF CARE 97 MG/DL (70-110)
[2019-05-22 16:42] VITALS: BP 136/89
[2019-05-22 18:58] LABS: GLUCOMETER DEV NAME(LOC) 3EX.; GLUCOSE,POINT OF CARE 113 MG/DL (70-110)
[2019-05-22 23:18] LABS: GLUCOMETER DEV NAME(LOC) 3EX.; GLUCOSE,POINT OF CARE 128 MG/DL (70-110)
[2019-05-23 06:12] VITALS: BP 91/58
[2019-05-23 06:26] LABS: GLUCOMETER DEV NAME(LOC) 3E.I; GLUCOSE,POINT OF CARE 78 MG/DL (70-110)
[2019-05-23 08:00] VITALS: BP 122/76
[2019-05-23] MEDS: PRENATAL NO.137/IRON/FOLIC ACID TABLET PO SCH (08:08)
[2019-05-23] MEDS: OLANZapine 5 MG RAPDIS TABLET PO SCH ×2 (08:08→21:35)
[2019-05-23 08:21] LABS: GLUCOMETER DEV NAME(LOC) 3EX.; GLUCOSE,POINT OF CARE 113 MG/DL (70-110)
[2019-05-23 13:41] LABS: GLUCOMETER DEV NAME(LOC) 3EX.; GLUCOSE,POINT OF CARE 128 MG/DL (70-110)
[2019-05-23 16:20] VITALS: BP 115/68
[2019-05-23 18:46] LABS: GLUCOMETER DEV NAME(LOC) 3EX.; GLUCOSE,POINT OF CARE 101 MG/DL (70-110)
[2019-05-23 21:46] LABS: GLUCOMETER DEV NAME(LOC) 3EX.; GLUCOSE,POINT OF CARE 89 MG/DL (70-110)
[2019-05-24 05:32] LABS: GLUCOMETER DEV NAME(LOC) 3E.I; GLUCOSE,POINT OF CARE 83 MG/DL (70-110)
[2019-05-24 08:00] VITALS: BP 126/88
[2019-05-24] MEDS: PRENATAL NO.137/IRON/FOLIC ACID TABLET PO SCH (08:11)
[2019-05-24] MEDS: OLANZapine 5 MG RAPDIS TABLET PO SCH ×2 (08:11→20:23)
[2019-05-24 09:16] LABS: GLUCOMETER DEV NAME(LOC) 3EX.; GLUCOSE,POINT OF CARE 90 MG/DL (70-110)
[2019-05-24 12:46] LABS: GLUCOMETER DEV NAME(LOC) 3EX.; GLUCOSE,POINT OF CARE 124 MG/DL (70-110)
[2019-05-24 16:36] VITALS: BP 120/58
[2019-05-24 19:25] LABS: GLUCOMETER DEV NAME(LOC) 3EX.; GLUCOSE,POINT OF CARE 178 MG/DL (70-110)
[2019-05-24 20:39] VITALS: BP 120/58
[2019-05-24] MEDS: ACETAMINOPHEN 325 MG TABLET PO PRN (20:43)
[2019-05-24 21:21] LABS: GLUCOMETER DEV NAME(LOC) 3EX.; GLUCOSE,POINT OF CARE 139 MG/DL (70-110)
[2019-05-25 00:19] VITALS: BP 110/85
[2019-05-25 05:21] LABS: GLUCOMETER DEV NAME(LOC) 3E.I; GLUCOSE,POINT OF CARE 81 MG/DL (70-110)
[2019-05-25 08:00] VITALS: BP 113/67
[2019-05-25] MEDS: OLANZapine 5 MG RAPDIS TABLET PO SCH ×2 (08:52→20:19)
[2019-05-25] MEDS: PRENATAL NO.137/IRON/FOLIC ACID TABLET PO SCH (08:52)
[2019-05-25 11:01] LABS: GLUCOMETER DEV NAME(LOC) 3E.I; GLUCOSE,POINT OF CARE 83 MG/DL (70-110)
[2019-05-25 13:30] LABS: GLUCOMETER DEV NAME(LOC) 3E.I; GLUCOSE,POINT OF CARE 131 MG/DL (70-110)
[2019-05-25] MEDS ORDERED: TUBERCULIN, PURIFIED PROTEIN DERIVATIVE 5 TU/0.1 ML SYRINGE ID ONE (15:30)
[2019-05-25 16:31] VITALS: BP 129/60
[2019-05-25 18:56] LABS: GLUCOMETER DEV NAME(LOC) 3EX.; GLUCOSE,POINT OF CARE 159 MG/DL (70-110)
[2019-05-25 21:05] LABS: GLUCOMETER DEV NAME(LOC) 3EX.; GLUCOSE,POINT OF CARE 120 MG/DL (70-110)
[2019-05-26 00:53] VITALS: BP 137/104
[2019-05-26] MEDS: ACETAMINOPHEN 325 MG TABLET PO PRN ×2 (00:53→20:44)
[2019-05-26 06:26] LABS: GLUCOMETER DEV NAME(LOC) 3E.I; GLUCOSE,POINT OF CARE 82 MG/DL (70-110)
[2019-05-26 08:00] VITALS: BP 124/74
[2019-05-26] MEDS: PRENATAL NO.137/IRON/FOLIC ACID TABLET PO SCH (08:26)
[2019-05-26] MEDS: OLANZapine 5 MG RAPDIS TABLET PO SCH ×2 (08:27→20:42)
[2019-05-26 08:40] LABS: GLUCOMETER DEV NAME(LOC) 3EX.; GLUCOSE,POINT OF CARE 104 MG/DL (70-110)
[2019-05-26 12:35] LABS: GLUCOMETER DEV NAME(LOC) 3EX.; GLUCOSE,POINT OF CARE 107 MG/DL (70-110)
[2019-05-26 16:00] VITALS: BP 112/66
[2019-05-26 18:06] LABS: GLUCOMETER DEV NAME(LOC) 3EX.; GLUCOSE,POINT OF CARE 114 MG/DL (70-110)
[2019-05-26 20:31] LABS: GLUCOMETER DEV NAME(LOC) 3EX.; GLUCOSE,POINT OF CARE 84 MG/DL (70-110)
[2019-05-27 01:19] VITALS: BP 122/87
[2019-05-27 05:36] LABS: GLUCOMETER DEV NAME(LOC) 3E.I; GLUCOSE,POINT OF CARE 75 MG/DL (70-110)
[2019-05-27] MEDS: OLANZapine 5 MG RAPDIS TABLET PO SCH ×2 (07:57→20:29)
[2019-05-27] MEDS: PRENATAL NO.137/IRON/FOLIC ACID TABLET PO SCH (07:58)
[2019-05-27 09:00] VITALS: BP 123/91
[2019-05-27] MEDS: ACETAMINOPHEN 325 MG TABLET PO PRN ×2 (09:00→18:32)
[2019-05-27 10:25] LABS: GLUCOMETER DEV NAME(LOC) 3EX.; GLUCOSE,POINT OF CARE 70 MG/DL (70-110)
[2019-05-27 12:50] LABS: GLUCOMETER DEV NAME(LOC) 3EX.; GLUCOSE,POINT OF CARE 112 MG/DL (70-110)
[2019-05-27 18:32] VITALS: BP 126/82
[2019-05-27 18:40] LABS: GLUCOMETER DEV NAME(LOC) 3EX.; GLUCOSE,POINT OF CARE 147 MG/DL (70-110)
[2019-05-27 19:35] VITALS: BP 149/70
[2019-05-27 22:05] LABS: GLUCOMETER DEV NAME(LOC) 3EX.; GLUCOSE,POINT OF CARE 65 MG/DL (70-110)
[2019-05-27 22:50] LABS: GLUCOMETER DEV NAME(LOC) 3EX.; GLUCOSE,POINT OF CARE 93 MG/DL (70-110)
[2019-05-28 00:53] VITALS: BP 107/67
[2019-05-28 05:31] LABS: GLUCOMETER DEV NAME(LOC) 3E.I; GLUCOSE,POINT OF CARE 77 MG/DL (70-110)
[2019-05-28] MEDS: OLANZapine 5 MG RAPDIS TABLET PO SCH ×2 (09:41→20:55)
[2019-05-28] MEDS: PRENATAL NO.137/IRON/FOLIC ACID TABLET PO SCH (09:42)
[2019-05-28 10:17] VITALS: BP 130/84
[2019-05-28 11:25] LABS: GLUCOMETER DEV NAME(LOC) 3EX.; GLUCOSE,POINT OF CARE 84 MG/DL (70-110)
[2019-05-28 15:06] LABS: GLUCOMETER DEV NAME(LOC) 3EX.; GLUCOSE,POINT OF CARE 84 MG/DL (70-110)
[2019-05-28 17:08] VITALS: BP 117/70
[2019-05-28 18:56] LABS: GLUCOMETER DEV NAME(LOC) 3EX.; GLUCOSE,POINT OF CARE 111 MG/DL (70-110)
[2019-05-28 21:10] LABS: GLUCOMETER DEV NAME(LOC) 3EX.; GLUCOSE,POINT OF CARE 84 MG/DL (70-110)
[2019-05-29 00:15] VITALS: BP 128/88
[2019-05-29] MEDS: ACETAMINOPHEN 325 MG TABLET PO PRN (00:15)
[2019-05-29 01:48] VITALS: BP 141/81
[2019-05-29 06:35] LABS: GLUCOMETER DEV NAME(LOC) 3E.I; GLUCOSE,POINT OF CARE 68 MG/DL (70-110)
[2019-05-29 06:36] LABS: GLUCOMETER DEV NAME(LOC) 3E.I; GLUCOSE,POINT OF CARE 99 MG/DL (70-110)
[2019-05-29] MEDS: OLANZapine 5 MG RAPDIS TABLET PO SCH ×2 (09:02→20:30)
[2019-05-29] MEDS: PRENATAL NO.137/IRON/FOLIC ACID TABLET PO SCH (09:03)
[2019-05-29 13:16] LABS: GLUCOMETER DEV NAME(LOC) 3EX.; GLUCOSE,POINT OF CARE 191 MG/DL (70-110)
[2019-05-29 16:01] VITALS: BP 120/73
[2019-05-29 17:50] LABS: GLUCOMETER DEV NAME(LOC) 3EX.; GLUCOSE,POINT OF CARE 143 MG/DL (70-110)
[2019-05-30] VITALS: BP 115/57
[2019-05-30] MEDS: ACETAMINOPHEN 325 MG TABLET PO PRN ×2 (00:20→23:40)
[2019-05-30 05:31] LABS: GLUCOMETER DEV NAME(LOC) 3E.I; GLUCOSE,POINT OF CARE 132 MG/DL (70-110)
[2019-05-30] MEDS: PRENATAL NO.137/IRON/FOLIC ACID TABLET PO SCH (08:42)
[2019-05-30] MEDS: OLANZapine 5 MG RAPDIS TABLET PO SCH ×2 (08:42→20:43)
[2019-05-30 12:24] VITALS: BP 134/89
[2019-05-30 14:11] LABS: GLUCOMETER DEV NAME(LOC) 3E.I; GLUCOSE,POINT OF CARE 175 MG/DL (70-110)
[2019-05-30 23:40] VITALS: BP 120/74
[2019-05-30] MEDS: MAG HYDROX/AL HYDROX/SIMETH ES 30 ML SUSPENSION UDCUP PO PRN (23:40)
[2019-05-31 06:36] LABS: GLUCOMETER DEV NAME(LOC) 3E.I; GLUCOSE,POINT OF CARE 98 MG/DL (70-110)
[2019-05-31] MEDS: OLANZapine 5 MG RAPDIS TABLET PO SCH ×2 (08:30→20:28)
[2019-05-31] MEDS: PRENATAL NO.137/IRON/FOLIC ACID TABLET PO SCH (08:30)
[2019-05-31 13:55] LABS: GLUCOMETER DEV NAME(LOC) 3EX.; GLUCOSE,POINT OF CARE 140 MG/DL (70-110)
[2019-05-31 21:50] VITALS: BP 128/78
[2019-06-01 01:14] VITALS: BP 128/63
[2019-06-01] MEDS: MAG HYDROX/AL HYDROX/SIMETH ES 30 ML SUSPENSION UDCUP PO PRN (03:12)
[2019-06-01 05:41] LABS: GLUCOMETER DEV NAME(LOC) 3E.I; GLUCOSE,POINT OF CARE 90 MG/DL (70-110)
[2019-06-01 08:00] VITALS: BP 140/93
[2019-06-01] MEDS: OLANZapine 5 MG RAPDIS TABLET PO SCH ×2 (08:10→20:20)
[2019-06-01] MEDS: PRENATAL NO.137/IRON/FOLIC ACID TABLET PO SCH (08:11)
[2019-06-01 18:47] VITALS: BP 132/86
[2019-06-02 00:37] VITALS: BP 106/61
[2019-06-02] MEDS: MAG HYDROX/AL HYDROX/SIMETH ES 30 ML SUSPENSION UDCUP PO PRN (00:49)
[2019-06-02 05:35] LABS: GLUCOMETER DEV NAME(LOC) 3E.I; GLUCOSE,POINT OF CARE 100 MG/DL (70-110)
[2019-06-02] MEDS: PRENATAL NO.137/IRON/FOLIC ACID TABLET PO SCH (08:43)
[2019-06-02] MEDS: OLANZapine 5 MG RAPDIS TABLET PO SCH ×2 (08:43→20:46)
[2019-06-02 11:51] VITALS: BP 114/68
[2019-06-02 21:26] VITALS: BP 128/83
[2019-06-03 01:20] VITALS: BP 120/78
[2019-06-03] MEDS: ACETAMINOPHEN 325 MG TABLET PO PRN (04:59)
[2019-06-03 05:51] LABS: GLUCOMETER DEV NAME(LOC) 3EX.; GLUCOSE,POINT OF CARE 69 MG/DL (70-110)
[2019-06-03 05:58] VITALS: BP 130/79
[2019-06-03 06:31] LABS: GLUCOMETER DEV NAME(LOC) 3EX.; GLUCOSE,POINT OF CARE 137 MG/DL (70-110)
[2019-06-03 08:11] VITALS: BP 146/105
[2019-06-03] MEDS: OLANZapine 5 MG RAPDIS TABLET PO SCH ×2 (08:11→21:16)
[2019-06-03] MEDS: PRENATAL NO.137/IRON/FOLIC ACID TABLET PO SCH (08:11)
[2019-06-03 11:06] LABS: GLUCOMETER DEV NAME(LOC) 3EX.; GLUCOSE,POINT OF CARE 83 MG/DL (70-110)
[2019-06-03 13:11] LABS: GLUCOMETER DEV NAME(LOC) 3EX.; GLUCOSE,POINT OF CARE 73 MG/DL (70-110)
[2019-06-03 19:15] LABS: GLUCOMETER DEV NAME(LOC) 3EX.; GLUCOSE,POINT OF CARE 152 MG/DL (70-110)
[2019-06-03 21:26] LABS: GLUCOMETER DEV NAME(LOC) 3EX.; GLUCOSE,POINT OF CARE 104 MG/DL (70-110)
[2019-06-04 03:50] VITALS: BP 110/71
[2019-06-04] MEDS: ACETAMINOPHEN 325 MG TABLET PO PRN (04:19)
[2019-06-04 06:01] LABS: GLUCOMETER DEV NAME(LOC) 3EX.; GLUCOSE,POINT OF CARE 141 MG/DL (70-110)
[2019-06-04 08:00] VITALS: BP 140/86
[2019-06-04] MEDS: PRENATAL NO.137/IRON/FOLIC ACID TABLET PO SCH (08:41)
[2019-06-04] MEDS: OLANZapine 5 MG RAPDIS TABLET PO SCH ×2 (08:41→20:24)
[2019-06-04 10:16] LABS: GLUCOMETER DEV NAME(LOC) 3EX.; GLUCOSE,POINT OF CARE 96 MG/DL (70-110)
[2019-06-04 12:56] LABS: GLUCOMETER DEV NAME(LOC) 3EX.; GLUCOSE,POINT OF CARE 136 MG/DL (70-110)
[2019-06-04 19:10] LABS: GLUCOMETER DEV NAME(LOC) 3EX.; GLUCOSE,POINT OF CARE 77 MG/DL (70-110)
[2019-06-04 19:32] VITALS: BP 129/77
[2019-06-04 21:00] LABS: GLUCOMETER DEV NAME(LOC) 3EX.; GLUCOSE,POINT OF CARE 126 MG/DL (70-110)
[2019-06-05 05:37] LABS: GLUCOMETER DEV NAME(LOC) 3E.I; GLUCOSE,POINT OF CARE 103 MG/DL (70-110)
[2019-06-05 08:20] VITALS: BP 139/84
[2019-06-05] MEDS: OLANZapine 5 MG RAPDIS TABLET PO SCH ×2 (09:28→20:25)
[2019-06-05] MEDS: PRENATAL NO.137/IRON/FOLIC ACID TABLET PO SCH (09:28)
[2019-06-05 14:26] LABS: GLUCOMETER DEV NAME(LOC) 3EX.; GLUCOSE,POINT OF CARE 135 MG/DL (70-110)
[2019-06-05 20:18] LABS: GLUCOMETER DEV NAME(LOC) 3E.I; GLUCOSE,POINT OF CARE 109 MG/DL (70-110)
[2019-06-05 21:20] LABS: GLUCOMETER DEV NAME(LOC) 3E.I; GLUCOSE,POINT OF CARE 92 MG/DL (70-110)
[2019-06-06 05:35] LABS: GLUCOMETER DEV NAME(LOC) 3E.I; GLUCOSE,POINT OF CARE 81 MG/DL (70-110)
[2019-06-06 05:51] VITALS: BP 140/98
[2019-06-06] MEDS: PRENATAL NO.137/IRON/FOLIC ACID TABLET PO SCH (09:00)
[2019-06-06 09:26] LABS: GLUCOMETER DEV NAME(LOC) 3E.I; GLUCOSE,POINT OF CARE 101 MG/DL (70-110)
[2019-06-06] MEDS: OLANZapine 5 MG RAPDIS TABLET PO SCH ×2 (09:38→21:15)
[2019-06-06 10:32] VITALS: BP 106/89
[2019-06-06 13:25] LABS: GLUCOMETER DEV NAME(LOC) 4S.; GLUCOSE,POINT OF CARE 90 MG/DL (70-110)
[2019-06-06 16:30] VITALS: BP 116/77
[2019-06-06 19:05] LABS: GLUCOMETER DEV NAME(LOC) 3E.I; GLUCOSE,POINT OF CARE 127 MG/DL (70-110)
[2019-06-07 05:46] LABS: GLUCOMETER DEV NAME(LOC) 3E.I; GLUCOSE,POINT OF CARE 92 MG/DL (70-110)
[2019-06-07 08:46] VITALS: BP 120/80
[2019-06-07] MEDS: OLANZapine 5 MG RAPDIS TABLET PO SCH ×2 (09:06→20:52)
[2019-06-07] MEDS: PRENATAL NO.137/IRON/FOLIC ACID TABLET PO SCH (09:06)
[2019-06-07] MEDS: ACETAMINOPHEN 325 MG TABLET PO PRN (09:07)
[2019-06-07 09:15] LABS: GLUCOMETER DEV NAME(LOC) 3EX.; GLUCOSE,POINT OF CARE 127 MG/DL (70-110)
[2019-06-07 10:10] LABS: BASOPHILS % (AUTO) 0.5 % (0.0-2.0); EOSINOPHILS % (AUTO) 1.7 % (1.0-6.0); HEMATOCRIT 40.9 % (36-46); HEMOGLOBIN 13.5 g/dL (12.0-16.0); LYMPHOCYTES # (AUTO) 1.8 K/uL (1.0-4.8); LYMPHOCYTES % (AUTO) 25.6 % (22.0-44.0); MEAN CORPUSCULAR HEMOGLOBIN 29.7 pg (26.0-34.0); MEAN CORPUSCULAR VOLUME 90 fL (80-100); MONOCYTES # (AUTO) 0.8 K/uL (0.1-1.0); MONOCYTES % (AUTO) 11.6 % (2.0-9.0); NEUTROPHILS # (AUTO) 4.2 K/uL (1.8-7.7); NEUTROPHILS % (AUTO) 60.6 % (40.0-70.0); PLATELET COUNT (AUTO) 199 K/uL (150-450); RED BLOOD CELL COUNT(AUTO) 4.54 MIL/uL (4.00-5.20); RED CELL DISTRIBUTION WIDTH 14.3 % (11.5-14.5)
[2019-06-07 10:23] LABS: HEMOGLOBIN A1C 5.5 % (4.5-6.2)
[2019-06-07 10:32] LABS: ALANINE AMINOTRANSFERASE 19 U/L (12-78); ALKALINE PHOSPHATASE 185 U/L (46-116); ANION GAP 9 mmol/L (8-16); ASPARTATE AMINOTRANSFERASE 15 U/L (15-37); BILIRUBIN,TOTAL 0.2 mg/dL (0.1-1.0); CALCIUM, TOTAL 9.6 mg/dL (8.8-10.5); CARBON DIOXIDE 24 mmol/L (22-29); CHLORIDE 102 mmol/L (98-107); GLOMERULAR FILTR. RATE CALC > 60 mL/min (>60); GLUCOSE,RANDOM 92 mg/dL (70-110); POTASSIUM 4.1 mmol/L (3.5-5.1); SODIUM SERUM 135 mmol/L (136-145); TOTAL PROTEIN, SERUM 6.5 g/dL (6.4-8.2); UREA NITROGEN, BLOOD 9 mg/dL (7-18)
[2019-06-07 13:20] LABS: GLUCOMETER DEV NAME(LOC) 3E.I; GLUCOSE,POINT OF CARE 150 MG/DL (70-110)
[2019-06-07 19:11] LABS: GLUCOMETER DEV NAME(LOC) 3E.I; GLUCOSE,POINT OF CARE 145 MG/DL (70-110)
[2019-06-08 06:03] VITALS: BP 149/58
[2019-06-08 06:11] LABS: GLUCOMETER DEV NAME(LOC) 3E.I; GLUCOSE,POINT OF CARE 80 MG/DL (70-110)
[2019-06-08] MEDS: PRENATAL NO.137/IRON/FOLIC ACID TABLET PO SCH (09:00)
[2019-06-08] MEDS: OLANZapine 5 MG RAPDIS TABLET PO SCH ×2 (09:20→21:42)
[2019-06-08] MEDS: ACETAMINOPHEN 325 MG TABLET PO PRN (09:22)
[2019-06-08 09:23] VITALS: BP 123/75
[2019-06-08 13:05] LABS: GLUCOMETER DEV NAME(LOC) 3E.I; GLUCOSE,POINT OF CARE 141 MG/DL (70-110)
[2019-06-08 18:51] LABS: GLUCOMETER DEV NAME(LOC) 3E.I; GLUCOSE,POINT OF CARE 156 MG/DL (70-110)
[2019-06-09 06:31] LABS: GLUCOMETER DEV NAME(LOC) 3E.I; GLUCOSE,POINT OF CARE 78 MG/DL (70-110)
[2019-06-09 08:14] VITALS: BP 109/53
[2019-06-09] MEDS: ACETAMINOPHEN 325 MG TABLET PO PRN (08:14)
[2019-06-09] MEDS: PRENATAL NO.137/IRON/FOLIC ACID TABLET PO SCH (08:15)
[2019-06-09] MEDS: OLANZapine 5 MG RAPDIS TABLET PO SCH ×2 (08:15→20:18)
[2019-06-09 13:21] LABS: GLUCOMETER DEV NAME(LOC) 3E.I; GLUCOSE,POINT OF CARE 131 MG/DL (70-110)
[2019-06-09 16:10] VITALS: BP 95/56
[2019-06-09 19:10] LABS: GLUCOMETER DEV NAME(LOC) 3E.I; GLUCOSE,POINT OF CARE 147 MG/DL (70-110)
[2019-06-10 05:41] LABS: GLUCOMETER DEV NAME(LOC) 3E.I; GLUCOSE,POINT OF CARE 85 MG/DL (70-110)
[2019-06-10] MEDS: PRENATAL NO.137/IRON/FOLIC ACID TABLET PO SCH (08:23)
[2019-06-10] MEDS: OLANZapine 5 MG RAPDIS TABLET PO SCH ×2 (08:23→20:29)
[2019-06-10 09:08] VITALS: BP 102/61
[2019-06-10 09:16] LABS: GLUCOMETER DEV NAME(LOC) 3EX.; GLUCOSE,POINT OF CARE 85 MG/DL (70-110)
[2019-06-10 12:46] LABS: GLUCOMETER DEV NAME(LOC) 3EX.; GLUCOSE,POINT OF CARE 113 MG/DL (70-110)
[2019-06-10 16:10] VITALS: BP 125/66
[2019-06-10 16:45] VITALS: BP 125/66
[2019-06-10 18:21] LABS: GLUCOMETER DEV NAME(LOC) 3EX.; GLUCOSE,POINT OF CARE 138 MG/DL (70-110)
[2019-06-11 05:36] LABS: GLUCOMETER DEV NAME(LOC) 3E.I; GLUCOSE,POINT OF CARE 78 MG/DL (70-110)
[2019-06-11 06:36] VITALS: BP 129/83
[2019-06-11 08:00] VITALS: BP 106/68
[2019-06-11 09:01] LABS: GLUCOMETER DEV NAME(LOC) 3EX.; GLUCOSE,POINT OF CARE 123 MG/DL (70-110)
[2019-06-11] MEDS: PRENATAL NO.137/IRON/FOLIC ACID TABLET PO SCH (09:23)
[2019-06-11] MEDS: OLANZapine 5 MG RAPDIS TABLET PO SCH ×2 (09:23→20:07)
[2019-06-11 13:26] LABS: GLUCOMETER DEV NAME(LOC) 3EX.; GLUCOSE,POINT OF CARE 137 MG/DL (70-110)
[2019-06-11 16:00] VITALS: BP 124/80
[2019-06-11 18:57] LABS: GLUCOMETER DEV NAME(LOC) 3EX.; GLUCOSE,POINT OF CARE 145 MG/DL (70-110)
[2019-06-12 09:05] VITALS: BP 119/64
[2019-06-12 09:11] LABS: GLUCOMETER DEV NAME(LOC) 4S.; GLUCOSE,POINT OF CARE 102 MG/DL (70-110)
[2019-06-12] MEDS: PRENATAL NO.137/IRON/FOLIC ACID TABLET PO SCH (09:21)
[2019-06-12] MEDS: OLANZapine 5 MG RAPDIS TABLET PO SCH ×2 (09:21→20:21)
[2019-06-12 12:50] LABS: GLUCOMETER DEV NAME(LOC) 3EX.; GLUCOSE,POINT OF CARE 134 MG/DL (70-110)
[2019-06-12 16:08] VITALS: BP 136/78
[2019-06-12] MEDS: ACETAMINOPHEN 325 MG TABLET PO PRN (16:10)
[2019-06-12 16:46] LABS: GLUCOMETER DEV NAME(LOC) 3E.I; GLUCOSE,POINT OF CARE 92 MG/DL (70-110)
[2019-06-12 18:36] LABS: GLUCOMETER DEV NAME(LOC) 3EX.; GLUCOSE,POINT OF CARE 140 MG/DL (70-110)
[2019-06-12] MEDS: DiphenhydrAMINE HCL 50 MG CAPSULE PO PRN (20:21)
[2019-06-13] MEDS: OLANZapine 5 MG RAPDIS TABLET PO SCH ×2 (08:09→21:34)
[2019-06-13] MEDS: PRENATAL NO.137/IRON/FOLIC ACID TABLET PO SCH (08:09)
[2019-06-13 08:24] VITALS: BP 160/84
[2019-06-13 09:16] LABS: GLUCOMETER DEV NAME(LOC) 3E.I; GLUCOSE,POINT OF CARE 92 MG/DL (70-110)
[2019-06-13 09:16] LABS: GLUCOMETER DEV NAME(LOC) 3E.I; GLUCOSE,POINT OF CARE 99 MG/DL (70-110)
[2019-06-13 12:54] LABS: GLUCOMETER DEV NAME(LOC) 3EX.; GLUCOSE,POINT OF CARE 103 MG/DL (70-110)
[2019-06-13 16:56] VITALS: BP 116/71
[2019-06-13 18:35] LABS: GLUCOMETER DEV NAME(LOC) 3EX.; GLUCOSE,POINT OF CARE 119 MG/DL (70-110)
[2019-06-14 05:46] LABS: GLUCOMETER DEV NAME(LOC) 3E.I; GLUCOSE,POINT OF CARE 79 MG/DL (70-110)
[2019-06-14] MEDS: OLANZapine 5 MG RAPDIS TABLET PO SCH ×2 (09:00→20:21)
[2019-06-14] MEDS: PRENATAL NO.137/IRON/FOLIC ACID TABLET PO SCH (09:00)
[2019-06-14 09:51] LABS: GLUCOMETER DEV NAME(LOC) 3EX.; GLUCOSE,POINT OF CARE 133 MG/DL (70-110)
[2019-06-14 12:46] LABS: GLUCOMETER DEV NAME(LOC) 3EX.; GLUCOSE,POINT OF CARE 169 MG/DL (70-110)
[2019-06-14 16:22] VITALS: BP 133/75
[2019-06-14] MEDS: ACETAMINOPHEN 325 MG TABLET PO PRN (16:25)
[2019-06-14 19:11] LABS: GLUCOMETER DEV NAME(LOC) 3EX.; GLUCOSE,POINT OF CARE 174 MG/DL (70-110)
[2019-06-14] MEDS: DiphenhydrAMINE HCL 50 MG CAPSULE PO PRN (20:21)
[2019-06-15 06:27] LABS: GLUCOMETER DEV NAME(LOC) 3E.I; GLUCOSE,POINT OF CARE 102 MG/DL (70-110)
[2019-06-15] MEDS: PRENATAL NO.137/IRON/FOLIC ACID TABLET PO SCH (08:20)
[2019-06-15] MEDS: OLANZapine 5 MG RAPDIS TABLET PO SCH ×2 (08:21→20:19)
[2019-06-15 08:47] LABS: GLUCOMETER DEV NAME(LOC) 3EX.; GLUCOSE,POINT OF CARE 106 MG/DL (70-110)
[2019-06-15 13:15] LABS: GLUCOMETER DEV NAME(LOC) 3EX.; GLUCOSE,POINT OF CARE 109 MG/DL (70-110)
[2019-06-15 16:14] VITALS: BP 125/86
[2019-06-15 17:03] VITALS: BP 124/78
[2019-06-15] MEDS: ACETAMINOPHEN 325 MG TABLET PO PRN (17:03)
[2019-06-15 18:26] LABS: GLUCOMETER DEV NAME(LOC) 3EX.; GLUCOSE,POINT OF CARE 152 MG/DL (70-110)
[2019-06-15] MEDS: DiphenhydrAMINE HCL 50 MG CAPSULE PO PRN (20:21)
[2019-06-16 05:40] LABS: GLUCOMETER DEV NAME(LOC) 3E.I; GLUCOSE,POINT OF CARE 82 MG/DL (70-110)
[2019-06-16] MEDS: OLANZapine 5 MG RAPDIS TABLET PO SCH ×2 (09:10→20:07)
[2019-06-16] MEDS: PRENATAL NO.137/IRON/FOLIC ACID TABLET PO SCH (09:10)
[2019-06-16 09:45] VITALS: BP 137/90
[2019-06-16 13:10] LABS: GLUCOMETER DEV NAME(LOC) 3EX.; GLUCOSE,POINT OF CARE 129 MG/DL (70-110)
[2019-06-16 17:00] VITALS: BP 125/75
[2019-06-16 19:05] LABS: GLUCOMETER DEV NAME(LOC) 3E.I; GLUCOSE,POINT OF CARE 147 MG/DL (70-110)
[2019-06-16] MEDS: DiphenhydrAMINE HCL 50 MG CAPSULE PO PRN (20:40)
[2019-06-17 08:00] VITALS: BP 144/112
[2019-06-17] MEDS: PRENATAL NO.137/IRON/FOLIC ACID TABLET PO SCH (08:25)
[2019-06-17] MEDS: OLANZapine 5 MG RAPDIS TABLET PO SCH ×2 (08:26→20:30)
[2019-06-17 08:40] LABS: GLUCOMETER DEV NAME(LOC) 3EX.; GLUCOSE,POINT OF CARE 121 MG/DL (70-110)
[2019-06-17 14:35] LABS: GLUCOMETER DEV NAME(LOC) 3E.I; GLUCOSE,POINT OF CARE 79 MG/DL (70-110)
[2019-06-17 17:37] VITALS: BP 118/79
[2019-06-17 19:21] LABS: GLUCOMETER DEV NAME(LOC) 3E.I; GLUCOSE,POINT OF CARE 97 MG/DL (70-110)
[2019-06-17] MEDS: DiphenhydrAMINE HCL 50 MG CAPSULE PO PRN (20:34)
[2019-06-18 05:36] LABS: GLUCOMETER DEV NAME(LOC) 3E.I; GLUCOSE,POINT OF CARE 91 MG/DL (70-110)
[2019-06-18] MEDS: OLANZapine 5 MG RAPDIS TABLET PO SCH ×2 (08:56→20:19)
[2019-06-18] MEDS: PRENATAL NO.137/IRON/FOLIC ACID TABLET PO SCH (08:56)
[2019-06-18 09:16] LABS: GLUCOMETER DEV NAME(LOC) 3EX.; GLUCOSE,POINT OF CARE 148 MG/DL (70-110)
[2019-06-18 13:11] LABS: GLUCOMETER DEV NAME(LOC) 3EX.; GLUCOSE,POINT OF CARE 115 MG/DL (70-110)
[2019-06-18 18:00] VITALS: BP 112/78
[2019-06-18] MEDS: ACETAMINOPHEN 325 MG TABLET PO PRN (18:05)
[2019-06-18 19:51] LABS: GLUCOMETER DEV NAME(LOC) 3EX.; GLUCOSE,POINT OF CARE 175 MG/DL (70-110)
[2019-06-18] MEDS: DiphenhydrAMINE HCL 50 MG CAPSULE PO PRN (20:19)
[2019-06-19 02:14] VITALS: BP 148/105
[2019-06-19 06:11] LABS: GLUCOMETER DEV NAME(LOC) 3E.I; GLUCOSE,POINT OF CARE 94 MG/DL (70-110)
[2019-06-19] MEDS: PRENATAL NO.137/IRON/FOLIC ACID TABLET PO SCH (08:16)
[2019-06-19] MEDS: OLANZapine 5 MG RAPDIS TABLET PO SCH ×2 (08:16→20:10)
[2019-06-19 10:46] LABS: GLUCOMETER DEV NAME(LOC) 3EX.; GLUCOSE,POINT OF CARE 77 MG/DL (70-110)
[2019-06-19 13:01] LABS: GLUCOMETER DEV NAME(LOC) 3EX.; GLUCOSE,POINT OF CARE 123 MG/DL (70-110)
[2019-06-19 17:16] VITALS: BP 112/64
[2019-06-19 19:01] LABS: GLUCOMETER DEV NAME(LOC) 3EX.; GLUCOSE,POINT OF CARE 130 MG/DL (70-110)
[2019-06-19] MEDS: DiphenhydrAMINE HCL 50 MG CAPSULE PO PRN (20:10)
[2019-06-19 21:44] VITALS: BP 129/78
[2019-06-19] MEDS: ACETAMINOPHEN 325 MG TABLET PO PRN (21:44)
[2019-06-20 06:31] LABS: GLUCOMETER DEV NAME(LOC) 3E.I; GLUCOSE,POINT OF CARE 86 MG/DL (70-110)
[2019-06-20] MEDS: OLANZapine 5 MG RAPDIS TABLET PO SCH ×2 (08:20→20:14)
[2019-06-20] MEDS: PRENATAL NO.137/IRON/FOLIC ACID TABLET PO SCH (08:20)
[2019-06-20 08:47] LABS: GLUCOMETER DEV NAME(LOC) 3EX.; GLUCOSE,POINT OF CARE 118 MG/DL (70-110)
[2019-06-20 10:32] VITALS: BP 145/109
[2019-06-20 12:36] LABS: GLUCOMETER DEV NAME(LOC) 3EX.; GLUCOSE,POINT OF CARE 123 MG/DL (70-110)
[2019-06-20 19:27] VITALS: BP 146/85
[2019-06-20] MEDS: ACETAMINOPHEN 325 MG TABLET PO PRN (19:40)
[2019-06-20 19:41] VITALS: BP 136/79
[2019-06-20 19:46] LABS: GLUCOMETER DEV NAME(LOC) 3EX.; GLUCOSE,POINT OF CARE 133 MG/DL (70-110)
[2019-06-20] MEDS: DiphenhydrAMINE HCL 50 MG CAPSULE PO PRN (20:40)
[2019-06-21 05:26] LABS: GLUCOMETER DEV NAME(LOC) 3E.I; GLUCOSE,POINT OF CARE 93 MG/DL (70-110)
[2019-06-21] MEDS: PRENATAL NO.137/IRON/FOLIC ACID TABLET PO SCH (08:27)
[2019-06-21] MEDS: OLANZapine 5 MG RAPDIS TABLET PO SCH ×2 (08:27→20:54)
[2019-06-21 08:46] LABS: GLUCOMETER DEV NAME(LOC) 3EX.; GLUCOSE,POINT OF CARE 146 MG/DL (70-110)
[2019-06-21 12:56] LABS: GLUCOMETER DEV NAME(LOC) 3EX.; GLUCOSE,POINT OF CARE 114 MG/DL (70-110)
[2019-06-21 18:12] VITALS: BP 120/78
[2019-06-22 05:22] LABS: GLUCOMETER DEV NAME(LOC) 3E.I; GLUCOSE,POINT OF CARE 109 MG/DL (70-110)
[2019-06-22 08:51] VITALS: BP 101/58
[2019-06-22] MEDS: PRENATAL NO.137/IRON/FOLIC ACID TABLET PO SCH (09:00)
[2019-06-22] MEDS: OLANZapine 5 MG RAPDIS TABLET PO SCH ×2 (09:20→20:07)
[2019-06-22 13:41] LABS: GLUCOMETER DEV NAME(LOC) 3E.I; GLUCOSE,POINT OF CARE 111 MG/DL (70-110)
[2019-06-22 17:00] VITALS: BP 98/56
[2019-06-22 18:51] LABS: GLUCOMETER DEV NAME(LOC) 3E.I; GLUCOSE,POINT OF CARE 172 MG/DL (70-110)
[2019-06-22] MEDS: DiphenhydrAMINE HCL 50 MG CAPSULE PO PRN (20:07)
[2019-06-23 06:26] LABS: GLUCOMETER DEV NAME(LOC) 3E.I; GLUCOSE,POINT OF CARE 87 MG/DL (70-110)
[2019-06-23 08:19] VITALS: BP 117/69
[2019-06-23] MEDS: PRENATAL NO.137/IRON/FOLIC ACID TABLET PO SCH (09:00)
[2019-06-23] MEDS: OLANZapine 5 MG RAPDIS TABLET PO SCH ×2 (09:00→22:16)
[2019-06-23 13:26] LABS: GLUCOMETER DEV NAME(LOC) 3E.I; GLUCOSE,POINT OF CARE 129 MG/DL (70-110)
[2019-06-23 20:03] VITALS: BP 95/58
[2019-06-23] MEDS ORDERED: RINGERS SOLUTION,LACTATED 1,000 ML IV ONE (20:45)
[2019-06-23] MEDS: DiphenhydrAMINE HCL 50 MG CAPSULE PO PRN (22:40)
[2019-06-24 00:34] VITALS: BP 120/74
[2019-06-24 05:31] LABS: GLUCOMETER DEV NAME(LOC) 3E.I; GLUCOSE,POINT OF CARE 99 MG/DL (70-110)
[2019-06-24 08:00] VITALS: BP 110/65
[2019-06-24] MEDS: OLANZapine 5 MG RAPDIS TABLET PO SCH ×2 (08:34→20:43)
[2019-06-24] MEDS: PRENATAL NO.137/IRON/FOLIC ACID TABLET PO SCH (08:35)
[2019-06-24 10:51] LABS: GLUCOMETER DEV NAME(LOC) 3E.I; GLUCOSE,POINT OF CARE 89 MG/DL (70-110)
[2019-06-24 13:36] LABS: GLUCOMETER DEV NAME(LOC) 3E.I; GLUCOSE,POINT OF CARE 123 MG/DL (70-110)
[2019-06-24 21:27] VITALS: BP 118/78
[2019-06-25 06:16] LABS: GLUCOMETER DEV NAME(LOC) 3E.I; GLUCOSE,POINT OF CARE 92 MG/DL (70-110)
[2019-06-25 08:00] VITALS: BP 131/54
[2019-06-25] MEDS: OLANZapine 5 MG RAPDIS TABLET PO SCH (09:00)
[2019-06-25] MEDS: PRENATAL NO.137/IRON/FOLIC ACID TABLET PO SCH (09:00)
[2019-06-25] MEDS ORDERED: CALCIUM CHLORIDE 100 MG/ML 10 ML SYRINGE IVP ONE (10:38)
[2019-06-25] MEDS ORDERED: OXYTOCIN 10 UNITS/ML VIAL IM ONE (10:38)
[2019-06-25] MEDS ORDERED: KETOROLAC TROMETHAMINE 60 MG/2 ML VIAL IM ONE (10:38)
[2019-06-25] MEDS ORDERED: ONDANSETRON HCL 4 MG/2 ML VIAL IVP ONE (10:38)
[2019-06-25] MEDS ORDERED: DEXAMETHASONE SOD PHOS 4 MG/ML VIAL IVP ONE (10:38)
[2019-06-25] MEDS ORDERED: METOCLOPRAMIDE HCL 5 MG/ML 2 ML VIAL IVP ONE ×2 (10:38→11:15)
[2019-06-25] MEDS ORDERED: EPHEDrine SULFATE 50 MG/ML VIAL IM ONE (10:38)
[2019-06-25] MEDS ORDERED: RINGERS SOLUTION,LACTATED 1,000 ML IV ONE (11:07)
[2019-06-25] MEDS ORDERED: CITRIC ACID/SODIUM CITRATE 30 ML SOLUTION UDCUP PO ONE (11:15)
[2019-06-25] MEDS ORDERED: ACET-2247 PO (15:11)
[2019-06-25] MEDS ORDERED: DIPH25 PO (15:12)
== END 2019-06-25 10:39 | disposition short-term general hospital (02) | DRG 833 ==
LOC: 3EX 17:00
DX: O99.343 Other mental disorders complicating pregnancy, third trimester (principal); F25.0 Schizoaffective disorder, bipolar type; O99.013 Anemia complicating pregnancy, third trimester; D64.9 Anemia, unspecified; E66.9 Obesity, unspecified; O99.213 Obesity complicating pregnancy, third trimester; O99.513 Diseases of the respiratory system complicating pregnancy, third trimester; O24.419 Gestational diabetes mellitus in pregnancy, unspecified control; J45.909 Unspecified asthma, uncomplicated; Z91.040 Latex allergy status; O36.8130 Decreased fetal movements, third trimester, not applicable or unspecified; O32.1XX0 Maternal care for breech presentation, not applicable or unspecified; Z3A.30 30 weeks gestation of pregnancy; Z91.19 Patient's noncompliance with other medical treatment and regimen
CPT/HCPCS: 76805; 76811; 80307; 83036; 84443; 84550; G0378; J0690; J0702; J1100; J1885; J2405; J2590; J2765; J3490

== ENCOUNTER 2019-06-25 10:35 | Inpatient (IN) | payer OTHER, MEDICAID ==
[~2019-06-25] VITALS: Ht 162.6 cm; Wt 120.7 kg
[2019-06-25] MEDS ORDERED: RINGERS SOLUTION,LACTATED 1,000 ML IV ONE (11:32)
[2019-06-25] MEDS ORDERED: CITRIC ACID/SODIUM CITRATE 30 ML SOLUTION UDCUP PO ONE (11:45)
[2019-06-25] MEDS ORDERED: METOCLOPRAMIDE HCL 5 MG/ML 2 ML VIAL IVP ONE (11:45)
[2019-06-25] MEDS ORDERED: MORPHINE SULFATE/PF 1 MG/ML 10 ML AMP ONE (11:56)
[2019-06-25] MEDS ORDERED: FentaNYL CITRATE-PF 100 MCG/2 ML VIAL ONE (11:56)
[2019-06-25] MEDS ORDERED: MIDAZOLAM HCL 2 MG/2 ML VIAL ONE (11:56)
[2019-06-25] MEDS ORDERED: BUPIVACAINE HCL/DEX-WATER/PF 0.75% 2 ML AMP ONE (11:57)
[2019-06-25] MEDS ORDERED: HYDROmorphone 2 MG/ML SYRINGE IVP PRN (12:15)
[2019-06-25] MEDS ORDERED: MEPERIDINE-PF 25 MG/ML VIAL IVP PRN (12:15)
[2019-06-25] MEDS ORDERED: OxyCODONE HCL/ACETAMINOPHEN 5-325 MG TABLET PO PRN (12:15)
[2019-06-25] MEDS ORDERED: FentaNYL CITRATE-PF 100 MCG/2 ML VIAL IVP PRN (12:15)
[2019-06-25] MEDS ORDERED: ACETAMINOPHEN 325 MG/ISO-OSM 32.5 ML IV ONE (12:15)
[2019-06-25] MEDS ORDERED: NALOXONE HCL 0.4 MG/ML VIAL IVP PRN (12:15)
[2019-06-25] MEDS ORDERED: ONDANSETRON HCL 4 MG/2 ML VIAL IVP PRN (12:15)
[2019-06-25 12:19] LABS: BASOPHILS % (AUTO) 0.4 % (0.0-2.0); EOSINOPHILS % (AUTO) 1.9 % (1.0-6.0); HEMATOCRIT 39.1 % (36-46); HEMOGLOBIN 13.4 g/dL (12.0-16.0); LYMPHOCYTES # (AUTO) 1.5 K/uL (1.0-4.8); LYMPHOCYTES % (AUTO) 25.8 % (22.0-44.0); MEAN CORPUSCULAR HEMOGLOBIN 30.4 pg (26.0-34.0); MEAN CORPUSCULAR HGB CONC 34.3 G/dL (31.0-37.0); MEAN CORPUSCULAR VOLUME 89 fL (80-100); MONOCYTES # (AUTO) 0.6 K/uL (0.1-1.0); MONOCYTES % (AUTO) 10.2 % (2.0-9.0); NEUTROPHILS # (AUTO) 3.6 K/uL (1.8-7.7); NEUTROPHILS % (AUTO) 61.7 % (40.0-70.0); PLATELET COUNT (AUTO) 184 K/uL (150-450); RED CELL DISTRIBUTION WIDTH 14.2 % (11.5-14.5)
[2019-06-25 12:31] LABS: GLUCOMETER DEV NAME(LOC) 4S.; GLUCOSE,POINT OF CARE 71 MG/DL (70-110)
[2019-06-25] MEDS ORDERED: GUM MASTIC/STORAX/MSAL/ALCOHOL LIQUID 0.67 ML VIAL TP ONE (12:47)
[2019-06-25] MEDS ORDERED: BUPIVACAINE LIPOSOME/PF 1.3%-13.3MG/ML SUSPENSION 20 ML VIAL INJ ONE (13:00)
[2019-06-25] MEDS ORDERED: OXYTOCIN 30 UNITS/LACT RINGERS 500 ML IV ONE (14:52)
[2019-06-25] MEDS ORDERED: LANOLIN 7 GM OINTMENT TP PRN (15:00)
[2019-06-25] MEDS: RINGERS SOLUTION,LACTATED 1,000 ML IV SCH ×2 (15:04→20:46)
[2019-06-25] MEDS ORDERED: ACET-2247 PO (15:11)
[2019-06-25] MEDS ORDERED: DIPH25 PO (15:12)
[2019-06-25] MEDS: KETOROLAC TROMETHAMINE 30 MG/ML VIAL IVP SCH (18:11)
[2019-06-25] MEDS: OXYGEN THERAPY IH SCH (20:00)
[2019-06-25] MEDS ORDERED: OXYGEN THERAPY IH SCH (20:00)
[2019-06-25] MEDS: MAGNESIUM HYDROXIDE SUSPENSION 30 ML UDCUP PO SCH (21:00)
[2019-06-26] MEDS: KETOROLAC TROMETHAMINE 30 MG/ML VIAL IVP SCH ×3 (00:11→12:28)
[2019-06-26] MEDS: DiphenhydrAMINE HCL 50 MG/ML VIAL IVP PRN ×2 (00:16→09:55)
[2019-06-26 06:20] LABS: BASOPHILS % (AUTO) 0.3 % (0.0-2.0); EOSINOPHILS % (AUTO) 1.4 % (1.0-6.0); HEMATOCRIT 28.8 % (36-46); HEMOGLOBIN 9.9 g/dL (12.0-16.0); LYMPHOCYTES # (AUTO) 1.1 K/uL (1.0-4.8); LYMPHOCYTES % (AUTO) 17.3 % (22.0-44.0); MEAN CORPUSCULAR HEMOGLOBIN 30.5 pg (26.0-34.0); MEAN CORPUSCULAR HGB CONC 34.4 G/dL (31.0-37.0); MEAN CORPUSCULAR VOLUME 89 fL (80-100); MONOCYTES # (AUTO) 0.5 K/uL (0.1-1.0); MONOCYTES % (AUTO) 8.3 % (2.0-9.0); NEUTROPHILS # (AUTO) 4.8 K/uL (1.8-7.7); NEUTROPHILS % (AUTO) 72.7 % (40.0-70.0); PLATELET COUNT (AUTO)-OB 135 K/uL (150-450); RED BLOOD CELL COUNT(AUTO) 3.25 MIL/uL (4.00-5.20); RED CELL DISTRIBUTION WIDTH 14.3 % (11.5-14.5)
[2019-06-26] MEDS: OXYGEN THERAPY IH SCH ×2 (08:00→20:00)
[2019-06-26] MEDS ORDERED: INFLUENZA VIRUS VACCINE QVS 2019-20 (3YR+)/PF 60 MCG/0.5 ML SYRINGE IM ONE (09:15)
[2019-06-26] MEDS: OxyCODONE HCL/ACETAMINOPHEN 5-325 MG TABLET PO PRN ×4 (18:26→18:40)
[2019-06-26] MEDS ORDERED: SOD FERRIC GLUC COMPLX/SUCROSE 125 MG in SODIUM CHLORIDE 0.9% 100 ML IV ONE (19:00)
[2019-06-26] MEDS: OLANZapine 5 MG TABLET PO SCH (21:03)
[2019-06-26] MEDS: IBUPROFEN 800 MG TABLET PO PRN (21:03)
[2019-06-26] MEDS: MAGNESIUM HYDROXIDE SUSPENSION 30 ML UDCUP PO SCH (21:04)
[2019-06-27] MEDS: IBUPROFEN 800 MG TABLET PO PRN ×3 (03:57→17:31)
[2019-06-27] MEDS: OXYGEN THERAPY IH SCH ×2 (08:00→20:00)
[2019-06-27] MEDS ORDERED: OLANZapine 10 MG TABLET PO SCH (09:00)
[2019-06-27] MEDS: MAGNESIUM HYDROXIDE SUSPENSION 30 ML UDCUP PO SCH ×3 (09:03→19:57)
[2019-06-27] MEDS: OLANZapine 5 MG TABLET PO SCH ×2 (09:10→21:59)
[2019-06-27 19:37] VITALS: BP 109/73
[2019-06-27] MEDS: OxyCODONE HCL/ACETAMINOPHEN 5-325 MG TABLET PO PRN (19:57)
[2019-06-28 00:06] VITALS: BP 118/72
[2019-06-28 03:01] VITALS: BP 116/72
[2019-06-28] MEDS: IBUPROFEN 800 MG TABLET PO PRN ×2 (08:05→19:01)
[2019-06-28] MEDS: OLANZapine 5 MG TABLET PO SCH ×2 (09:03→20:43)
[2019-06-28] MEDS: MAGNESIUM HYDROXIDE SUSPENSION 30 ML UDCUP PO SCH ×2 (09:05→20:43)
[2019-06-28] MEDS: OxyCODONE HCL/ACETAMINOPHEN 5-325 MG TABLET PO PRN (09:48)
[2019-06-28] MEDS ORDERED: DOCUSATE SODIUM 100 MG CAPSULE PO PRN (12:00)
[2019-06-29] MEDS: IBUPROFEN 800 MG TABLET PO PRN ×3 (00:49→14:03)
[2019-06-29] MEDS: MAGNESIUM HYDROXIDE SUSPENSION 30 ML UDCUP PO SCH (09:00)
[2019-06-29] MEDS: OLANZapine 5 MG TABLET PO SCH (10:30)
[2019-06-29] MEDS ORDERED: IBUP-2071 PO (18:53)
[2019-06-29] MEDS ORDERED: DOCU-275 PO (18:54)
[2019-06-29] MEDS ORDERED: FERR-89 PO (18:56)
== END 2019-06-29 18:25 | disposition short-term general hospital (02) | DRG 788 ==
LOC: 4S 10:35 → OBSVTOIN 10:35
PROVIDERS: ADMIT Obstetrics & Gynecology; ATTEND Obstetrics & Gynecology
PROC: 10D00Z1 Extraction of Products of Conception, Low, Open Approach (ICD-10-PCS; principal; 2019-06-25)
DX: O99.344 Other mental disorders complicating childbirth (principal); O69.81X0 Labor and delivery complicated by cord around neck, without compression, not applicable or unspecified; O99.214 Obesity complicating childbirth; O24.429 Gestational diabetes mellitus in childbirth, unspecified control; F25.1 Schizoaffective disorder, depressive type; E66.9 Obesity, unspecified; Z91.040 Latex allergy status; Z3A.39 39 weeks gestation of pregnancy; Z37.0 Single live birth
CPT/HCPCS: 86850; 86900; 86901; 87081; 88307; 90686; C9290; J1200; J1885; J2250; J2590; J2765; J2916; J3010; J3490; J7050; J7120

== ENCOUNTER 2019-06-29 18:30 | Inpatient (IN) | payer OTHER, MEDICAID ==
[~2019-06-29] VITALS: Ht 162.6 cm; Wt 123.8 kg
[~2019-06-29 18:30] MED LIST changes: +ACET-2247 PO; +DIPH25 PO
[2019-06-29] MEDS ORDERED: IBUP-2071 PO (18:53)
[2019-06-29] MEDS ORDERED: DOCU-275 PO (18:54)
[2019-06-29] MEDS ORDERED: FERR-89 PO (18:56)
[2019-06-29 20:26] VITALS: BP 114/75
[2019-06-29] MEDS ORDERED: ONDANSETRON HCL 4 MG TABLET PO PRN (20:45)
[2019-06-29] MEDS ORDERED: LOPERAMIDE HCL 2 MG CAPSULE PO PRN (20:45)
[2019-06-29] MEDS ORDERED: MAG HYDROX/AL HYDROX/SIMETH ES 30 ML SUSPENSION UDCUP PO PRN (20:45)
[2019-06-29] MEDS ORDERED: DOCUSATE SODIUM 100 MG CAPSULE PO PRN (20:45)
[2019-06-29] MEDS ORDERED: NICOTINE 14 MG/24 HOUR PATCH TD PRN (20:45)
[2019-06-29] MEDS ORDERED: MAGNESIUM HYDROXIDE SUSPENSION 30 ML UDCUP PO PRN (20:45)
[2019-06-29] MEDS ORDERED: ACETAMINOPHEN 325 MG TABLET PO PRN (20:45)
[2019-06-29] MEDS ORDERED: CloNIDine HCL 0.1 MG TABLET PO PRN (20:45)
[2019-06-29] MEDS ORDERED: ALBUTEROL SULFATE HFA 90 MCG/PUFF 8 GM INHALER IH PRN (20:45)
[2019-06-29] MEDS ORDERED: PETROLATUM,WHITE 28 GM JELLY TP PRN (20:45)
[2019-06-29] MEDS ORDERED: GuaiFENesin/D-METHORPHAN [SUGAR-FREE] 200-20MG/10 ML SYRUP UDCUP PO PRN (20:45)
[2019-06-29] MEDS ORDERED: INFLUENZA VIRUS VACCINE QVS 2019-20 (3YR+)/PF 60 MCG/0.5 ML SYRINGE IM ONE (21:15)
[2019-06-29 21:41] VITALS: BP 134/72
[2019-06-29] MEDS: IBUPROFEN 400 MG TABLET PO PRN (21:41)
[2019-06-29] MEDS: OLANZapine 5 MG TABLET PO SCH (21:44)
[2019-06-30 05:38] VITALS: BP 135/83
[2019-06-30] MEDS: OLANZapine 5 MG TABLET PO SCH ×2 (08:22→20:36)
[2019-06-30 12:35] VITALS: BP 110/69
[2019-06-30] MEDS: IBUPROFEN 400 MG TABLET PO PRN ×2 (12:35→20:36)
[2019-06-30 17:50] VITALS: BP 133/81
[2019-07-01] MEDS: OLANZapine 5 MG TABLET PO SCH ×2 (08:52→20:36)
[2019-07-01 16:05] VITALS: BP 132/69
[2019-07-01 20:36] VITALS: BP 128/72
[2019-07-01] MEDS: IBUPROFEN 400 MG TABLET PO PRN (20:36)
[2019-07-01 21:48] VITALS: BP 132/69
[2019-07-02 03:39] VITALS: BP 147/103
[2019-07-02 06:07] LABS: ALANINE AMINOTRANSFERASE 25 U/L (12-78); ALBUMIN 2.2 g/dL (3.4-5.0); ALKALINE PHOSPHATASE 84 U/L (46-116); ANION GAP 11 mmol/L (8-16); ASPARTATE AMINOTRANSFERASE 22 U/L (15-37); BILIRUBIN,TOTAL 0.2 mg/dL (0.1-1.0); CALCIUM, TOTAL 9.2 mg/dL (8.8-10.5); CARBON DIOXIDE 26 mmol/L (22-29); CHLORIDE 103 mmol/L (98-107); CREATININE 1.09 mg/dL (0.60-1.30); GLOMERULAR FILTR. RATE CALC > 60 mL/min (>60); GLUCOSE,RANDOM 105 mg/dL (70-110); POTASSIUM 3.6 mmol/L (3.5-5.1); SODIUM SERUM 140 mmol/L (136-145); UREA NITROGEN, BLOOD 14 mg/dL (7-18)
[2019-07-02] MEDS: MULTIVITAMINS WITH MINERALS, THERAPEUTIC TABLET PO SCH (10:04)
[2019-07-02] MEDS: OLANZapine 5 MG TABLET PO SCH ×2 (10:04→20:43)
[2019-07-02] MEDS: IBUPROFEN 400 MG TABLET PO PRN ×2 (10:08→21:32)
[2019-07-02 10:13] VITALS: BP 108/58
[2019-07-02 17:22] VITALS: BP 146/83
[2019-07-02] MEDS: ZOLPIDEM TARTRATE 10 MG TABLET PO PRN (21:07)
[2019-07-02 21:32] VITALS: BP 129/75
[2019-07-03 04:05] VITALS: BP 120/83
[2019-07-03] MEDS: IBUPROFEN 400 MG TABLET PO PRN ×4 (08:15→20:15)
[2019-07-03] MEDS: OLANZapine 5 MG TABLET PO SCH ×2 (08:35→21:12)
[2019-07-03] MEDS: MULTIVITAMINS WITH MINERALS, THERAPEUTIC TABLET PO SCH (08:35)
[2019-07-03 11:09] VITALS: BP 40/64
[2019-07-03] MEDS ORDERED: ALBUTEROL SULFATE HFA 90 MCG/PUFF 8 GM INHALER IH PRN (12:30)
[2019-07-03] MEDS ORDERED: PETROLATUM,WHITE 28 GM JELLY TP PRN (12:30)
[2019-07-03] MEDS ORDERED: DOCUSATE SODIUM 100 MG CAPSULE PO PRN (12:30)
[2019-07-03] MEDS ORDERED: LOPERAMIDE HCL 2 MG CAPSULE PO PRN (12:30)
[2019-07-03] MEDS ORDERED: ONDANSETRON HCL 4 MG TABLET PO PRN (12:30)
[2019-07-03] MEDS ORDERED: CloNIDine HCL 0.1 MG TABLET PO PRN (12:30)
[2019-07-03] MEDS ORDERED: NICOTINE 14 MG/24 HOUR PATCH TD PRN (12:30)
[2019-07-03] MEDS ORDERED: MAG HYDROX/AL HYDROX/SIMETH ES 30 ML SUSPENSION UDCUP PO PRN (12:30)
[2019-07-03] MEDS ORDERED: ACETAMINOPHEN 325 MG TABLET PO PRN (12:30)
[2019-07-03] MEDS ORDERED: MAGNESIUM HYDROXIDE SUSPENSION 30 ML UDCUP PO PRN (12:30)
[2019-07-03] MEDS ORDERED: GuaiFENesin/D-METHORPHAN [SUGAR-FREE] 200-20MG/10 ML SYRUP UDCUP PO PRN (12:30)
[2019-07-03] MEDS: FERROUS SULFATE 325 MG EC TABLET PO SCH (18:00)
[2019-07-03 20:15] VITALS: BP 116/83
[2019-07-04] MEDS: FERROUS SULFATE 325 MG EC TABLET PO SCH ×2 (07:07→16:43)
[2019-07-04 08:00] VITALS: BP 135/92
[2019-07-04] MEDS: OLANZapine 5 MG TABLET PO SCH ×2 (08:30→20:11)
[2019-07-04] MEDS: MULTIVITAMINS WITH MINERALS, THERAPEUTIC TABLET PO SCH (08:30)
[2019-07-04 18:09] VITALS: BP 144/94
[2019-07-04] MEDS: IBUPROFEN 400 MG TABLET PO PRN (18:09)
[2019-07-05] MEDS: FERROUS SULFATE 325 MG EC TABLET PO SCH ×2 (06:47→16:24)
[2019-07-05] MEDS: MULTIVITAMINS WITH MINERALS, THERAPEUTIC TABLET PO SCH (09:53)
[2019-07-05] MEDS: OLANZapine 5 MG TABLET PO SCH ×2 (09:53→21:08)
[2019-07-05 16:25] VITALS: BP 112/57
[2019-07-06 04:00] VITALS: BP 124/91
[2019-07-06] MEDS: FERROUS SULFATE 325 MG EC TABLET PO SCH ×2 (06:42→16:51)
[2019-07-06 06:43] VITALS: BP 109/82
[2019-07-06] MEDS: IBUPROFEN 400 MG TABLET PO PRN (06:43)
[2019-07-06] MEDS: MULTIVITAMINS WITH MINERALS, THERAPEUTIC TABLET PO SCH (09:08)
[2019-07-06] MEDS: OLANZapine 5 MG TABLET PO SCH ×2 (09:08→20:35)
[2019-07-06 17:00] VITALS: BP 142/74
[2019-07-06] MEDS: ZOLPIDEM TARTRATE 10 MG TABLET PO PRN (20:35)
[2019-07-07 04:32] VITALS: BP 127/89
[2019-07-07] MEDS: MULTIVITAMINS WITH MINERALS, THERAPEUTIC TABLET PO SCH (08:40)
[2019-07-07] MEDS: OLANZapine 5 MG TABLET PO SCH ×2 (08:41→21:11)
[2019-07-07] MEDS: FERROUS SULFATE 325 MG EC TABLET PO SCH ×2 (08:42→17:34)
[2019-07-07 09:00] VITALS: BP 148/92
[2019-07-07 09:56] VITALS: BP 148/92
[2019-07-07] MEDS: IBUPROFEN 400 MG TABLET PO PRN (21:10)
[2019-07-07 21:11] VITALS: BP 138/79
[2019-07-07] MEDS: ZOLPIDEM TARTRATE 10 MG TABLET PO PRN (21:11)
[2019-07-07 21:31] VITALS: BP 138/78
[2019-07-08] MEDS: FERROUS SULFATE 325 MG EC TABLET PO SCH ×2 (07:34→17:40)
[2019-07-08] MEDS: MULTIVITAMINS WITH MINERALS, THERAPEUTIC TABLET PO SCH (08:52)
[2019-07-08] MEDS: OLANZapine 5 MG TABLET PO SCH ×2 (08:52→20:18)
[2019-07-08 12:41] VITALS: BP 140/78
[2019-07-08 16:00] VITALS: BP 109/80
[2019-07-09 02:08] VITALS: BP 122/87
[2019-07-09] MEDS: FERROUS SULFATE 325 MG EC TABLET PO SCH ×2 (06:42→16:37)
[2019-07-09] MEDS: MULTIVITAMINS WITH MINERALS, THERAPEUTIC TABLET PO SCH (09:18)
[2019-07-09] MEDS: OLANZapine 5 MG TABLET PO SCH ×2 (09:18→20:59)
[2019-07-09] MEDS: MINERAL OIL/PETROLATUM 120 GM CREAM TP PRN (12:47)
[2019-07-09 17:00] VITALS: BP 120/84
[2019-07-09] MEDS: ZOLPIDEM TARTRATE 10 MG TABLET PO PRN (21:02)
[2019-07-10 08:00] VITALS: BP 127/74
[2019-07-10] MEDS: OLANZapine 5 MG TABLET PO SCH ×2 (08:52→20:04)
[2019-07-10] MEDS: MULTIVITAMINS WITH MINERALS, THERAPEUTIC TABLET PO SCH (08:52)
[2019-07-10] MEDS: FERROUS SULFATE 325 MG EC TABLET PO SCH ×2 (08:52→16:38)
[2019-07-10 17:05] VITALS: BP 110/71
[2019-07-10] MEDS: IBUPROFEN 400 MG TABLET PO PRN (20:05)
[2019-07-10] MEDS: ZOLPIDEM TARTRATE 10 MG TABLET PO PRN (20:05)
[2019-07-11] MEDS: MULTIVITAMINS WITH MINERALS, THERAPEUTIC TABLET PO SCH (08:29)
[2019-07-11] MEDS: OLANZapine 5 MG TABLET PO SCH ×2 (08:29→20:13)
[2019-07-11] MEDS: FERROUS SULFATE 325 MG EC TABLET PO SCH ×2 (08:29→16:37)
[2019-07-11 16:30] VITALS: BP 116/68
[2019-07-11] MEDS: IBUPROFEN 400 MG TABLET PO PRN (16:40)
[2019-07-11] MEDS: MINERAL OIL/PETROLATUM 120 GM CREAM TP PRN (20:14)
[2019-07-11] MEDS: ZOLPIDEM TARTRATE 10 MG TABLET PO PRN (20:14)
[2019-07-12] MEDS: FERROUS SULFATE 325 MG EC TABLET PO SCH (06:34)
[2019-07-12] MEDS: MULTIVITAMINS WITH MINERALS, THERAPEUTIC TABLET PO SCH (08:45)
[2019-07-12] MEDS: OLANZapine 5 MG TABLET PO SCH (08:45)
[2019-07-12] MEDS ORDERED: OLAN5TAB2 PO (13:48)
[2019-07-12] MEDS ORDERED: MULT-1239 PO (13:55)
== END 2019-07-12 15:30 | DRG 776 ==
LOC: 3EX 18:30
DX: O99.345 Other mental disorders complicating the puerperium (principal); F25.1 Schizoaffective disorder, depressive type; Z91.5 Personal history of self-harm; J45.909 Unspecified asthma, uncomplicated; D64.9 Anemia, unspecified; Z91.040 Latex allergy status; O90.81 Anemia of the puerperium; O99.53 Diseases of the respiratory system complicating the puerperium; O99.315 Alcohol use complicating the puerperium
CPT/HCPCS: 87081; G0378